=== PATIENT | female | born 1945 | race Caucasian/White ===

== ENCOUNTER 2017-01-19 07:17 | Emergency (ER) | payer MEDICARE, BC ==
--- NOTE | 2017-01-19 09:07 | EDM.PDOC ---
ED HISTORY OF PRESENT ILLNESS - General Chief Complaint: Respiratory Problem Stated Complaint: SOB Time Seen by Provider: 01/19/17 07:45 Source of Information: Reports: Patient, Family (Daughter, ), RN notes reviewed History Limitations: Reports: No limitations - History of Present Illness INITIAL COMMENTS - FREE TEXT/NARRATIVE: The patient's family states that they brought her to the EEG gets her wishes. She is reporting a head and facial pain that extends down her anterior neck to her upper chest, whenever she exerts herself, on off since 01/15/2017. She apparently has been experiencing this for many years, perhaps since 2008. She is unable to describe the character of her pain. She also reports cough productive of phlegm (color unknown) for the past 10 days. No recent fever, nausea, vomiting, constipation, diarrhea, or urinary symptoms. 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 Her most recent Venofer infusion was this past 01/15/2017. - Related Data Allergies/ADRs: Allergies Allergy/AdvReac Type Severity Reaction Status Date / Time lisinopril Allergy Swelling Verified 01/19/17 07:26 red dye Allergy Rash Verified 01/19/17 07:26 Home Meds: Home Meds Aspirin [[place] Aspirin] 81 mg PO DAILY 08/19/14 [History] DULoxetine [Cymbalta] 30 mg PO DAILY 08/19/14 [History] Isosorbide Mononitrate [Imdur] 60 mg PO DAILY 08/19/14 [History] Levothyroxine Sodium [Synthroid] 150 mcg PO DAILY 08/19/14 [History] Losartan [Cozaar] 25 mg PO BID 08/19/14 [History] Metoprolol Succinate [Toprol XL] 50 mg PO DAILY 08/19/14 [History] Nitroglycerin 0.4 mg SL ASDIRECTED PRN 08/19/14 [History] Past Medical History Cardiovascular History: Reports: CAD, Hypertension Gastrointestinal History: Reports: GERD, Hiatal hernia 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: Musculoskeletal History: Reports: Fracture Neurological History: Reports: CVA (Number agitated, during CABG surgery) Psychiatric History: Reports: Depression Endocrine/Metabolic History: Reports: Hypothyroidism Hematologic History: Reports: Anemia, Blood transfusion(s), Iron deficiency Oncologic (Cancer) History: Reports: Uterine - Infectious Disease History Infectious Disease History: Reports: Chicken pox, Measles, Mumps - Past Surgical History HEENT Surgical History: Reports: Cataract surgery, Tonsillectomy Cardiovascular Surgical History: Reports: Coronary artery bypass (x 5 vessel, 2011) GI Surgical History: Reports: Colonoscopy Female Surgical History: Reports: Hysterectomy, Salpingo-oophorectomy, Tubal ligation Musculoskeletal Surgical History: Reports: Knee replacement (left) Social & Family History - Tobacco Use Smoking Status *Q: Never Smoker Second Hand Smoke Exposure: No - Caffeine Use Caffeine Use: Reports: Soda Other Caffeine Use: occasionally - Alcohol Use Alcohol Use History: Yes Days Per Week of Alcohol Use: 0 Alcohol Use Frequency: Socially - Recreational Drug Use Recreational Drug Use: No - Living Situation & Occupation Living situation: Reports: , with spouse Occupation: retired ED ROS GENERAL - Review of Systems Review Of Systems: See Below Constitutional: Reports: no symptoms HEENT: Reports: Other (Head and facial pain, as per the HPI) Respiratory: Reports: Cough, Sputum Cardiovascular: Reports: Chest pain (as per the HPI) Endocrine: Reports: no symptoms GI/Abdominal: Reports: No symptoms : Reports: no symptoms Musculoskeletal: Reports: no symptoms Skin: Reports: no symptoms Neurological: Reports: No Symptoms Psychiatric: Reports: No symptoms Hematologic/Lymphatic: Reports: no symptoms Immunologic: Reports: no symptoms ED EXAM, GENERAL - Physical Exam Exam: See Below Exam Limited By: No limitations General Appearance: alert, WD/WN, mild distress (Kept her eyes closed the entire visit) Ears: normal external exam, hearing grossly normal Ear Exam: bilateral ear: auricle normal Nose: normal inspection, no blood Throat/Mouth: Normal inspection, Normal lips, Normal voice, No airway compromise Head: atraumatic, normocephalic Neck: normal inspection, full range of motion Respiratory/Chest: no respiratory distress, lungs clear, normal breath sounds, no accessory muscle use, other (Reproducible tenderness to palpation of the upper chest) Cardiovascular: normal peripheral pulses, regular rate, rhythm, no edema, no gallop, no JVD, no murmur, no rub Peripheral Pulses: 4+: radial (L), radial (R) GI/Abdominal: normal bowel sounds, soft, non tender, no organomegaly, no distention, no abnormal bruit, no mass (Female) Exam: Deferred Rectal (Female) Exam: Deferred Back Exam: normal inspection, full range of motion, NT Extremities: normal inspection, normal range of motion, no pedal edema, normal capillary refill Neurological: alert, oriented, normal cognition, no motor/sensory deficits Psychiatric: flat affect Skin Exam: Warm, Dry, Intact, Normal color, No rash Lymphatic: no adenopathy EKG INTERPRETATION EKG Date: 01/19/17 Time: 07:35 Rhythm: NSR Rate (beats/min): 82 [place]: normal P-wave: present QRS: normal ST-T: normal QT: normal Comparison: no change (10/27/2014) Course - Vital Signs Last Recorded V/S: Last Vital Signs Temp 36.4 C 01/19/17 07:20 Pulse 86 01/19/17 07:20 Resp 15 01/19/17 07:20 BP 156/56 H 01/19/17 07:20 Pulse Ox 97 01/19/17 07:20 Orthostatic Blood Pressure [ 178/90 Standing] Orthostatic Blood Pressure [ 162/83 Supine] - Orders/Labs/Meds Orders: Active Orders 24 hr Category Date Time Status EKG 12 Lead [EKG Documentation Completion] [RC] STAT Care 01/19/17 07:35 Active Orthostatic Vital Signs [RC] STAT Care 01/19/17 08:11 Active Chest 2V [CR] Stat Exams 01/19/17 08:11 Taken UA W/MICROSCOPIC [URIN] Stat Lab 01/19/17 09:48 Ordered Labs: Laboratory Tests 01/19/17 01/19/17 01/19/17 Range/Units 07:50 07:50 07:50 WBC 7.13 (3.98-10.04) K/mm3 RBC 4.34 (3.98-5.22) M/mm3 Hgb 9.5 L (11.2-15.7) gm/L Hct 32.1 L (34.1-44.9) % MCV 74.0 L (79.4-94.8) fl MCH 21.9 L (25.6-32.2) pg MCHC 29.6 L (32.2-35.5) g/dl RDW Std Deviation 47.0 H (36.4-46.3) fL Plt Count 338 (182-369) K/mm3 MPV 10.7 (9.4-12.3) fl Neutrophils % (Manual) 75 H (40-60) % Band Neutrophils % 0 (0-10) % Lymphocytes % (Manual) 12 L (20-40) % Atypical Lymphs % 4 % Monocytes % (Manual) 4 (2-10) % Eosinophils % (Manual) 4 (0.7-5.8) % Basophils % (Manual) 1 (0.1-1.2) Platelet Estimate Adequate Plt Morphology Comment Normal Polychromasia 1+ slight Hypochromasia 1+ slight Poikilocytosis 2+ moderate Anisocytosis 1+ slight Microcytosis 1+ slight Macrocytosis 1+ slight Tear Drop Cells 1+ slight Ovalocytes 1+ slight Stomatocytes 1+ slight RBC Morph Comment Abnormal Percent Retic (0.50-1.70) % PT (8.0-13.0) SECONDS INR APTT (22-36) SECONDS D-Dimer, Quantitative 0.68 H (0.19-0.59) mg/L Sodium 143 (136-145) mEq/L Potassium 3.9 (3.5-5.1) mEq/L Chloride 108 H (98-107) mEq/L Carbon Dioxide 27 (21-32) mEq/L Anion Gap 11.9 (5-15) BUN 16 (7-18) mg/dL Creatinine 0.7 (0.55-1.02) mg/dL Est Cr Clr Drug Dosing 59.15 mL/min Estimated GFR (MDRD) > 60 (>60) mL/min BUN/Creatinine Ratio 22.9 H (14-18) Glucose 108 (80-115) mg/dL Calcium 8.7 (8.5-10.1) mg/dL Iron (50-170) ug/dL TIBC (100-400) ug/dL % Saturation (20-55) % Transferrin (202-364) mg/dL Ferritin (8-252) ng/ml Total Bilirubin 0.2 (0.2-1.0) mg/dL AST 24 (15-37) U/L ALT 24 (14-59) U/L Alkaline Phosphatase 53 (46-116) U/L Lactate Dehydrogenase 174 (81-234) U/L Troponin I < 0.017 (0.00-0.056) ng/mL C-Reactive Protein 0.8 (<1.0) mg/dL Total Protein 6.8 (6.4-8.2) g/dl Albumin 3.3 L (3.4-5.0) g/dl Globulin 3.5 gm/dL Albumin/Globulin Ratio 0.9 L (1-2) TSH 3rd Generation 1.578 (0.358-3.74) uIU/mL Urine Color (Yellow) Urine Appearance (Clear) Urine pH (5.0-8.0) Ur Specific [place] (1.005-1.030) Urine Protein (Negative) Urine Glucose (UA) (Negative) Urine Ketones (Negative) Urine Occult Blood (Negative) Urine Nitrite (Negative) Urine Bilirubin (Negative) Urine Urobilinogen (0.2-1.0) Ur Leukocyte Esterase (Negative) Urine RBC (0-5) /hpf Urine WBC (0-5) /hpf Ur Epithelial Cells (0-5) /hpf Ur Squamous Epith Cells (0-5) /hpf Urine Bacteria (FEW) /hpf Urine Mucus (FEW) /hpf 01/19/17 01/19/17 01/19/17 Range/Units 07:50 07:50 07:50 WBC (3.98-10.04) K/mm3 RBC (3.98-5.22) M/mm3 Hgb (11.2-15.7) gm/L Hct (34.1-44.9) % MCV (79.4-94.8) fl MCH (25.6-32.2) pg MCHC (32.2-35.5) g/dl RDW Std Deviation (36.4-46.3) fL Plt Count (182-369) K/mm3 MPV (9.4-12.3) fl Neutrophils % (Manual) (40-60) % Band Neutrophils % (0-10) % Lymphocytes % (Manual) (20-40) % Atypical Lymphs % % Monocytes % (Manual) (2-10) % Eosinophils % (Manual) (0.7-5.8) % Basophils % (Manual) (0.1-1.2) Platelet Estimate Plt Morphology Comment Polychromasia Hypochromasia Poikilocytosis Anisocytosis Microcytosis Macrocytosis Tear Drop Cells Ovalocytes Stomatocytes RBC Morph Comment Percent Retic 2.37 H (0.50-1.70) % PT 9.6 (8.0-13.0) SECONDS INR 0.89 APTT 26 (22-36) SECONDS D-Dimer, Quantitative (0.19-0.59) mg/L Sodium (136-145) mEq/L Potassium (3.5-5.1) mEq/L Chloride (98-107) mEq/L Carbon Dioxide (21-32) mEq/L Anion Gap (5-15) BUN (7-18) mg/dL Creatinine (0.55-1.02) mg/dL Est Cr Clr Drug Dosing mL/min Estimated GFR (MDRD) (>60) mL/min BUN/Creatinine Ratio (14-18) Glucose (80-115) mg/dL Calcium (8.5-10.1) mg/dL Iron 40 L (50-170) ug/dL TIBC 430 H (100-400) ug/dL % Saturation 9 L (20-55) % Transferrin 344 (202-364) mg/dL Ferritin 211 (8-252) ng/ml Total Bilirubin (0.2-1.0) mg/dL AST (15-37) U/L ALT (14-59) U/L Alkaline Phosphatase (46-116) U/L Lactate Dehydrogenase (81-234) U/L Troponin I (0.00-0.056) ng/mL C-Reactive Protein (<1.0) mg/dL Total Protein (6.4-8.2) g/dl Albumin (3.4-5.0) g/dl Globulin gm/dL Albumin/Globulin Ratio (1-2) TSH 3rd Generation (0.358-3.74) uIU/mL Urine Color (Yellow) Urine Appearance (Clear) Urine pH (5.0-8.0) Ur Specific [place] (1.005-1.030) Urine Protein (Negative) Urine Glucose (UA) (Negative) Urine Ketones (Negative) Urine Occult Blood (Negative) Urine Nitrite (Negative) Urine Bilirubin (Negative) Urine Urobilinogen (0.2-1.0) Ur Leukocyte Esterase (Negative) Urine RBC (0-5) /hpf Urine WBC (0-5) /hpf Ur Epithelial Cells (0-5) /hpf Ur Squamous Epith Cells (0-5) /hpf Urine Bacteria (FEW) /hpf Urine Mucus (FEW) /hpf 01/19/17 Range/Units 09:48 WBC (3.98-10.04) K/mm3 RBC (3.98-5.22) M/mm3 Hgb (11.2-15.7) gm/L Hct (34.1-44.9) % MCV (79.4-94.8) fl MCH (25.6-32.2) pg MCHC (32.2-35.5) g/dl RDW Std Deviation (36.4-46.3) fL Plt Count (182-369) K/mm3 MPV (9.4-12.3) fl Neutrophils % (Manual) (40-60) % Band Neutrophils % (0-10) % Lymphocytes % (Manual) (20-40) % Atypical Lymphs % % Monocytes % (Manual) (2-10) % Eosinophils % (Manual) (0.7-5.8) % Basophils % (Manual) (0.1-1.2) Platelet Estimate Plt Morphology Comment Polychromasia Hypochromasia Poikilocytosis Anisocytosis Microcytosis Macrocytosis Tear Drop Cells Ovalocytes Stomatocytes RBC Morph Comment Percent Retic (0.50-1.70) % PT (8.0-13.0) SECONDS INR APTT (22-36) SECONDS D-Dimer, Quantitative (0.19-0.59) mg/L Sodium (136-145) mEq/L Potassium (3.5-5.1) mEq/L Chloride (98-107) mEq/L Carbon Dioxide (21-32) mEq/L Anion Gap (5-15) BUN (7-18) mg/dL Creatinine (0.55-1.02) mg/dL Est Cr Clr Drug Dosing mL/min Estimated GFR (MDRD) (>60) mL/min BUN/Creatinine Ratio (14-18) Glucose (80-115) mg/dL Calcium (8.5-10.1) mg/dL Iron (50-170) ug/dL TIBC (100-400) ug/dL % Saturation (20-55) % Transferrin (202-364) mg/dL Ferritin (8-252) ng/ml Total Bilirubin (0.2-1.0) mg/dL AST (15-37) U/L ALT (14-59) U/L Alkaline Phosphatase (46-116) U/L Lactate Dehydrogenase (81-234) U/L Troponin I (0.00-0.056) ng/mL C-Reactive Protein (<1.0) mg/dL Total Protein (6.4-8.2) g/dl Albumin (3.4-5.0) g/dl Globulin gm/dL Albumin/Globulin Ratio (1-2) TSH 3rd Generation (0.358-3.74) uIU/mL Urine Color Other H (Yellow) Urine Appearance Clear (Clear) Urine pH 7.0 (5.0-8.0) Ur Specific [place] 1.020 (1.005-1.030) Urine Protein Negative (Negative) Urine Glucose (UA) Negative (Negative) Urine Ketones Negative (Negative) Urine Occult Blood Negative (Negative) Urine Nitrite Negative (Negative) Urine Bilirubin Negative (Negative) Urine Urobilinogen 0.2 (0.2-1.0) Ur Leukocyte Esterase Negative (Negative) Urine RBC Not seen (0-5) /hpf Urine WBC Not seen (0-5) /hpf Ur Epithelial Cells Not seen (0-5) /hpf Ur Squamous Epith Cells 0-5 (0-5) /hpf Urine Bacteria Not seen (FEW) /hpf Urine Mucus Not seen (FEW) /hpf - Radiology Interpretation Free Text/Narrative:: Two-view chest radiograph appears to be grossly normal. Cardiac silhouette is within normal limits. No pulmonary vascular congestion. No pleural effusions. No focal infiltrate. No pneumothorax. Likely hiatal hernia. Sternotomy wires and cardiac clips noted. Formal read per the Radiologist pending. - Re-Assessments/Exams Free Text/Narrative Re-Assessment/Exam: 01/19/17 11:11 The patient is not orthostatic. The urine sample is in the lab, but there is apparently a computer glitch, therefore we are still waiting on the urine results. 01/19/17 11:49 Test results discussed with the patient, her , and daughter. All questions answered. Today's workup is grossly unremarkable and does not explain the cause of the patient's symptoms. I suspect that the patient is suffering from a viral URI with cough. Departure - Departure Time of Disposition: 11:50 Disposition: Home, Self-Care 01 Condition: good Clinical Impression: Viral URI with cough Referrals: Christy Oconnor [employer] [Primary Care Provider] - Forms: ED Department Discharge Additional Instructions: You were seen in the emergency room for head and face pain extending down onto her chest, along with a cough. Workup in the ER included blood work, and a urinalysis, an ECG, a chest x-ray, and positional blood pressure checks. Your entire workup was unremarkable. Your hemoglobin/hematocrit are 9.5/32.1. Your symptoms are MOST LIKELY due to a viral URI with cough. Unfortunately, there is no treatment for a viral illness - it will have to run its course. We DO NOT recommend that you take any [id number] cough or cold remedies. They do not work, but do have side effects. Followup with your PCP, Anais Oconnor, as needed. If any other problems, please do not hesitate to return to the ER. - My Orders Last 24 Hours: My Active Orders 01/19/17 07:35 EKG 12 Lead [EKG Documentation Completion] [RC] STAT 01/19/17 08:11 Orthostatic Vital Signs [RC] STAT Chest 2V [CR] Stat 01/19/17 09:48 UA W/MICROSCOPIC [URIN] Stat - Assessment/Plan Last 24 Hours: My Active Orders 01/19/17 07:35 EKG 12 Lead [EKG Documentation Completion] [RC] STAT 01/19/17 08:11 Orthostatic Vital Signs [RC] STAT Chest 2V [CR] Stat 01/19/17 09:48 UA W/MICROSCOPIC [URIN] Stat
[2017-01-19 12:18] VITALS: BP 146/71
--- NOTE | 2017-01-19 18:16 | CR ---
Chest: Two views of the chest were obtained. Comparison: Previous chest x-ray of 10/27/14. Heart size appears within normal limits. Large hiatal hernia is seen increased in size from prior exam. Lungs are clear with no acute infiltrates. Previous sternotomy is noted for CABG. Degenerative spurring is noted within the spine. Impression: 1. Large hiatal hernia increased in size from prior exam. 2. Other incidental findings. Nothing acute is appreciated. Diagnostic code #2
== END 2017-01-19 12:10 | disposition home or self-care (01) ==
LOC: JD.ED 07:17
DX: J06.9 Acute upper respiratory infection, unspecified (principal); R05 Cough; I25.810 Atherosclerosis of coronary artery bypass graft(s) without angina pectoris; I10 Essential (primary) hypertension; K21.9 Gastro-esophageal reflux disease without esophagitis; K44.9 Diaphragmatic hernia without obstruction or gangrene; Z86.73 Personal history of transient ischemic attack (TIA), and cerebral infarction without residual deficits; F32.9 Major depressive disorder, single episode, unspecified; E03.9 Hypothyroidism, unspecified; D50.9 Iron deficiency anemia, unspecified
CPT/HCPCS: 36415; 71020; 71020-26; 80053; 81001; 82728; 83540; 83615; 84443; 84466; 84484; 85025; 85045; 85379; 85610; 85730; 86140; 93005; 99283; 99285-25

== ENCOUNTER 2017-09-08 23:49 | Observation (INO) | payer MEDICARE, BC ==
[2017-09-09] MEDS ORDERED: Sodium Chloride 0.9% 10 ML Syringe FLUSH PRN (00:06)
[2017-09-09] MEDS ORDERED: LORazepam 2 MG/ML MDV IVPUSH ONE (00:30)
[2017-09-09] MEDS ORDERED: HYDROmorphone 0.5 MG/0.5 ML Syringe IVPUSH ONE (00:30)
[2017-09-09] MEDS ORDERED: Nitroglycerin 2% Oint 1 GM UD Packet TOP ONE (00:31)
[2017-09-09] MEDS ORDERED: Metoprolol Tartrate 5 MG in Sodium Chloride 0.9% 50 ML IV ONE (00:50)
[2017-09-09] MEDS ORDERED: Metoprolol Tartrate 5 MG/5 ML SDV IVPUSH ONE (00:51)
--- NOTE | 2017-09-09 01:15 | EDM.PDOC ---
ED HPI GENERAL MEDICAL PROBLEM - General Chief Complaint: Chest Pain Stated Complaint: CHEST PAIN Time Seen by Provider: 09/09/17 00:06 Source of Information: Reports: Patient, Family, RN Notes Reviewed () - History of Present Illness INITIAL COMMENTS - FREE TEXT/NARRATIVE: 72-year-old female comes in with symptoms of chest discomfort. She had onset of burning and pressure type tightness of her mid chest radiating toward her right shoulder and base of neck this evening about 2 hours ago. Upon arrival to ED she states the pain was much better and then just prior to my exam did start coming back again. She does have history of coronary artery disease with prior bypass surgery about 5 years ago. She does have history of hypothyroidism, hypertension and chronic anemia. She states that she has been getting somewhat frequent chest pains off and on for about the past month. The discomfort this evening was more severe and longer lasting than what she is typically been experiencing. There's been no nausea vomiting or diaphoresis. She states she has had low energy recently and "has not been doing much". Chest Pain Score (Numeric/FACES): 5 - Related Data Allergies Allergy/AdvReac Type Severity Reaction Status Date / Time lisinopril Allergy Swelling Verified 09/09/17 00:02 red dye Allergy Rash Verified 09/09/17 00:02 Home Meds: Home Meds Levothyroxine Sodium [Synthroid] 150 mcg PO DAILY 08/19/14 [History] Losartan [Cozaar] 25 mg PO BID 08/19/14 [History] Metoprolol Succinate [Toprol XL] 50 mg PO DAILY 08/19/14 [History] Nitroglycerin 0.4 mg SL ASDIRECTED PRN 08/19/14 [History] Past Medical History HEENT History: Reports: Cataract Cardiovascular History: Reports: CAD, Hypertension Other Cardiovascular History: states bypass grafts collapsed "because iron level was so low, it wouldn't pump the blood." Was then stented. 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 Psychiatric History: Reports: Depression Endocrine/Metabolic History: Reports: Hypothyroidism Other Endocrine/Metabolic History: hypoglycemic. Hematologic History: Reports: Anemia, Blood Transfusion(s), Iron Deficiency Other Hematologic History: iron transfusions. Oncologic (Cancer) History: Reports: Uterine - Infectious Disease History Infectious Disease History: Reports: Chicken Pox, Measles, Mumps - Past Surgical History HEENT Surgical History: Reports: Cataract Surgery, Tonsillectomy Cardiovascular Surgical History: Reports: Coronary Artery Bypass Female Surgical History: Reports: Hysterectomy, Salpingo-Oophorectomy, Tubal Ligation Musculoskeletal Surgical History: Reports: Knee Replacement Social & Family History - Tobacco Use Smoking Status *Q: Never Smoker Second Hand Smoke Exposure: No - Caffeine Use Caffeine Use: Reports: Coffee Other Caffeine Use: occasionally - Alcohol Use Days Per Week of Alcohol Use: 0 - Recreational Drug Use Recreational Drug Use: No - Living Situation & Occupation Living situation: Reports: , with Spouse Occupation: Retired ED ROS GENERAL - Review of Systems Review Of Systems: See Below Constitutional: Denies: Fever, Chills, Diaphoresis HEENT: Denies: Throat Pain Respiratory: Reports: Shortness of Breath (Exertional) Cardiovascular: Reports: Chest Pain (Onset about 2 hours ago anterior and right chest), Lightheadedness (Mild) GI/Abdominal: Reports: Abdominal Pain (She did have some upper mid epigastric burning discomfort now better). Denies: Diarrhea, Hematochezia, Melena, Vomiting Musculoskeletal: Reports: Neck Pain (Right shoulder asymmetric), Shoulder Pain Skin: Reports: No Symptoms Neurological: Reports: Dizziness (Mild) ED EXAM, GENERAL - Physical Exam Exam: See Below General Appearance: Alert, Mild Distress Eye Exam: Bilateral Eye: PERRL Throat/Mouth: Normal Inspection, Normal Oropharynx Head: Atraumatic Neck: Supple, Full Range of Motion, Other Respiratory/Chest: No Respiratory Distress (No JVD), Lungs Clear, Normal Breath Sounds. No: Rales, Rhonchi, Wheezing Cardiovascular: Tachycardia GI/Abdominal: Soft, Non-Tender. No: Guarding Rectal (Female) Exam: Normal Exam, Normal Rectal Tone, Other (Small amount of brown stool, heme-negative) Back Exam: Normal Inspection. No: CVA Tenderness (L), CVA Tenderness (R) Extremities: Pedal Edema, Increased Warmth. No: Leg Pain (Mild bilateral), Redness Neurological: Alert, No Motor/Sensory Deficits Skin Exam: Warm, Dry, Pallor EKG INTERPRETATION EKG Date: 09/08/17 Rhythm: NSR [place]: Normal P-Wave: Present QRS: Normal ST-T: Normal Course - Vital Signs Last Recorded V/S: Last Vital Signs Temp 97.4 F 09/08/17 23:58 Pulse 102 H 09/08/17 23:58 Resp 20 09/08/17 23:58 BP 153/63 H 09/08/17 23:58 Pulse Ox 98 09/08/17 23:58 - Orders/Labs/Meds Orders: Active Orders 24 hr Category Date Time Status EKG 12 Lead [EKG Documentation Completion] [RC] STAT Care 09/09/17 00:07 Active Peripheral IV Care [RC] . DIRECTED Care 09/09/17 00:07 Active Chest 1V Frontal [CR] Stat Exams 09/09/17 00:07 Taken PACKED CELLS [RED BLOOD CELLS LP] [BBK] Stat Lab 09/09/17 00:39 Results TYPE AND SCREEN [BBK] Stat Lab 09/09/17 00:39 Results Sodium Chloride 0.9% [Normal Saline] 250 ml Med 09/09/17 01:45 Active IV ASDIRECTED Sodium Chloride 0.9% [Saline Flush] Med 09/09/17 00:06 Active 10 ml FLUSH ASDIRECTED PRN Peripheral IV Insertion Adult [OM.PC] Stat Oth 09/09/17 00:07 Ordered Medication Orders Sodium Chloride (Normal Saline) 250 mls @ 10 mls/hr IV ASDIRECTED JOELLEN Sodium Chloride (Saline Flush) 10 ml FLUSH ASDIRECTED PRN PRN Reason: Keep Vein Open Last Admin: 09/09/17 00:21 Dose: 10 ml Labs: Laboratory Tests 09/09/17 09/09/17 09/09/17 Range/Units 00:39 00:39 00:39 WBC 5.64 (3.98-10.04) K/mm3 RBC 2.86 L (3.98-5.22) M/mm3 Hgb 6.0 L* (11.2-15.7) gm/L Hct 21.5 L (34.1-44.9) % MCV 75.2 L (79.4-94.8) fl MCH 21.0 L (25.6-32.2) pg MCHC 27.9 L (32.2-35.5) g/dl RDW Std Deviation 43.1 (36.4-46.3) fL Plt Count 262 (182-369) K/mm3 MPV 10.7 (9.4-12.3) fl Neut % (Auto) 67.7 (34.0-71.1) % Lymph % (Auto) 20.7 (19.3-51.7) % [place] % (Auto) 8.9 (4.7-12.5) % Eos % (Auto) 2.1 (0.7-5.8) Baso % (Auto) 0.2 (0.1-1.2) % Neut # (Auto) 3.82 (1.56-6.13) K/mm3 Lymph # (Auto) 1.17 L (1.18-3.74) K/mm3 [place] # (Auto) 0.50 H (0.24-0.36) K/mm3 Eos # (Auto) 0.12 (0.04-0.36) K/mm3 Baso # (Auto) 0.01 (0.01-0.08) K/mm3 Manual Slide Review Abnormal smear Sodium 142 (136-145) mEq/L Potassium 3.8 (3.5-5.1) mEq/L Chloride 106 (98-107) mEq/L Carbon Dioxide 25 (21-32) mEq/L Anion Gap 14.8 (5-15) BUN 20 H (7-18) mg/dL Creatinine 1.0 (0.55-1.02) mg/dL Est Cr Clr Drug Dosing 44.56 mL/min Estimated GFR (MDRD) 55 (>60) mL/min BUN/Creatinine Ratio 20.0 H (14-18) Glucose 154 H (83-115) mg/dL Calcium 8.7 (8.5-10.1) mg/dL Total Bilirubin 0.2 (0.2-1.0) mg/dL AST 17 (15-37) U/L ALT 19 (14-59) U/L Alkaline Phosphatase 42 L (46-116) U/L Troponin I < 0.017 (0.00-0.056) ng/mL NT-Pro-B Natriuret Pep 364 H (0-125) pg/mL Total Protein 6.1 L (6.4-8.2) g/dl Albumin 3.0 L (3.4-5.0) g/dl Globulin 3.1 gm/dL Albumin/Globulin Ratio 1.0 (1-2) Blood Type Gel Antibody Screen Crossmatch 09/09/17 Range/Units 00:39 WBC (3.98-10.04) K/mm3 RBC (3.98-5.22) M/mm3 Hgb (11.2-15.7) gm/L Hct (34.1-44.9) % MCV (79.4-94.8) fl MCH (25.6-32.2) pg MCHC (32.2-35.5) g/dl RDW Std Deviation (36.4-46.3) fL Plt Count (182-369) K/mm3 MPV (9.4-12.3) fl Neut % (Auto) (34.0-71.1) % Lymph % (Auto) (19.3-51.7) % [place] % (Auto) (4.7-12.5) % Eos % (Auto) (0.7-5.8) Baso % (Auto) (0.1-1.2) % Neut # (Auto) (1.56-6.13) K/mm3 Lymph # (Auto) (1.18-3.74) K/mm3 [place] # (Auto) (0.24-0.36) K/mm3 Eos # (Auto) (0.04-0.36) K/mm3 Baso # (Auto) (0.01-0.08) K/mm3 Manual Slide Review Sodium (136-145) mEq/L Potassium (3.5-5.1) mEq/L Chloride (98-107) mEq/L Carbon Dioxide (21-32) mEq/L Anion Gap (5-15) BUN (7-18) mg/dL Creatinine (0.55-1.02) mg/dL Est Cr Clr Drug Dosing mL/min Estimated GFR (MDRD) (>60) mL/min BUN/Creatinine Ratio (14-18) Glucose (83-115) mg/dL Calcium (8.5-10.1) mg/dL Total Bilirubin (0.2-1.0) mg/dL AST (15-37) U/L ALT (14-59) U/L Alkaline Phosphatase (46-116) U/L Troponin I (0.00-0.056) ng/mL NT-Pro-B Natriuret Pep (0-125) pg/mL Total Protein (6.4-8.2) g/dl Albumin (3.4-5.0) g/dl Globulin gm/dL Albumin/Globulin Ratio (1-2) Blood Type O POSITIVE Gel Antibody Screen Negative Crossmatch See Detail Meds: Medications Generic Name Dose Route Start Last Admin Trade Name Freq PRN Reason Stop Dose Admin Sodium Chloride 250 mls @ 10 mls/hr 09/09/17 01:45 Normal Saline IV ASDIRECTED JOELLEN Sodium Chloride 10 ml 09/09/17 00:06 09/09/17 00:21 Saline Flush FLUSH 10 ml ASDIRECTED PRN Administration Keep Vein Open Discontinued Medications Generic Name Dose Route Start Last Admin Trade Name Freq PRN Reason Stop Dose Admin Hydromorphone HCl 0.5 mg 09/09/17 00:30 09/09/17 00:37 Dilaudid IVPUSH 09/09/17 00:31 0.5 mg ONETIME ONE Administration Metoprolol Tartrate 5 mg/ 55 mls @ 100 mls/hr 09/09/17 00:50 Sodium Chloride IV 09/09/17 01:22 ONETIME ONE Lorazepam 0.25 mg 09/09/17 00:30 09/09/17 00:37 Ativan IVPUSH 09/09/17 00:31 0.25 mg ONETIME ONE Administration Metoprolol Tartrate 5 mg 09/09/17 00:51 Lopressor IVPUSH 09/09/17 00:52 ONETIME ONE Nitroglycerin 1 gm 09/09/17 00:31 09/09/17 00:38 Nitro-Bid 2% TOP 09/09/17 00:32 1 gm ONETIME ONE Administration - Re-Assessments/Exams Free Text/Narrative Re-Assessment/Exam: 09/09/17 01:20. Hemoglobin has come back at 6.0. She does have history of chronic anemia. She had Been getting iron infusion shots regularly but apparently that was stopped last spring about 8 or 9 months ago. She states her hemoglobin had been 10 at the clinic not too long ago. there has been no recent melena or hematochezia. She states she has had frequent colonoscopy and endoscopy looking for etiology of apparent blood loss and no bleeding site "has ever been found". She states her last colonoscopy was less than a year ago. Other chemistries are normal. Troponin is come back normal. 09/09/17 01:34. Chest x-ray shows fairly large hiatal hernia which she has had on previous study there is some blurring of the left heart shadow also present on prior chest x-ray. I have ordered 2 units of blood for transfusion. Will plan to make admission arrangements at this time. Departure - Departure Time of Disposition: 01:35 Disposition: Admitted As Inpatient 67 Condition: Fair Clinical Impression: Atypical chest pain Anemia Qualifiers: Anemia type: iron deficiency Iron deficiency anemia type: unspecified iron deficiency Qualified Code(s): D50.9 - Iron deficiency anemia, unspecified ED Communication - Discussed Case With (1) Discussed Case With (1): Admitting Provider (Dr Carver, decision to admit at about 01:45.) - My Orders Last 24 Hours: My Active Orders 09/09/17 00:06 Sodium Chloride 0.9% [Saline Flush] 10 ml FLUSH ASDIRECTED PRN 09/09/17 00:07 EKG 12 Lead [EKG Documentation Completion] [RC] STAT Peripheral IV Care [RC] . DIRECTED Chest 1V Frontal [CR] Stat Peripheral IV Insertion Adult [OM.PC] Stat 09/09/17 00:39 PACKED CELLS [RED BLOOD CELLS LP] [BBK] Stat TYPE AND SCREEN [BBK] Stat 09/09/17 01:45 Sodium Chloride 0.9% [Normal Saline] 250 ml IV ASDIRECTED - Assessment/Plan Last 24 Hours: My Active Orders 09/09/17 00:06 Sodium Chloride 0.9% [Saline Flush] 10 ml FLUSH ASDIRECTED PRN 09/09/17 00:07 EKG 12 Lead [EKG Documentation Completion] [RC] STAT Peripheral IV Care [RC] . DIRECTED Chest 1V Frontal [CR] Stat Peripheral IV Insertion Adult [OM.PC] Stat 09/09/17 00:39 PACKED CELLS [RED BLOOD CELLS LP] [BBK] Stat TYPE AND SCREEN [BBK] Stat 09/09/17 01:45 Sodium Chloride 0.9% [Normal Saline] 250 ml IV ASDIRECTED
[2017-09-09] MEDS: Sodium Chloride 0.9% 250 ML IV SCH ×3 (01:50→17:03)
[2017-09-09] MEDS ORDERED: Sodium Chloride 0.9% 1,000 ML IV SCH (04:30)
--- NOTE | 2017-09-09 07:24 | CR ---
Chest: Portable view of the chest was obtained. Comparison: Prior chest x-ray of 01/19/17. Heart size is slightly enlarged. Large hiatal hernia is noted. Previous sternotomy is noted with CABG. Lung markings are mildly increased which appear stable. No acute infiltrates are seen. Bony structures are grossly intact. Impression: 1. Large hiatal hernia. Other stable findings. 2. Nothing acute is appreciated on portable chest x-ray. Diagnostic code #2
[2017-09-09] MEDS ORDERED: Nitroglycerin 0.4 MG Tab.SL SL PRN (08:18)
--- NOTE | 2017-09-09 08:27 | PCM.HP ---
H&P History of Present Illness - General Date of Service: 09/09/17 Admit Problem/Dx: Admission Diagnosis/Problem Admission Diagnosis/Problem Anemia Source of Information: Patient - History of Present Illness Initial Comments - Free Text/Narative: 72-year-old female comes in with symptoms of chest discomfort. She had onset of burning and pressure type tightness of her mid chest radiating toward her right shoulder and base of neck this evening about 2 hours ago. Upon arrival to ED she states the pain was much better and then just prior to my exam did start coming back again. She does have history of coronary artery disease with prior bypass surgery about 5 years ago. She does have history of hypothyroidism, hypertension and chronic anemia. She states that she has been getting somewhat frequent chest pains off and on for about the past month. The discomfort this evening was more severe and longer lasting than what she is typically been experiencing. There's been no nausea vomiting or diaphoresis. She states she has had low energy recently and "has not been doing much". in ER her Hb was 6.0, had a hx of iron def anemia and she used to get IV iron infusion for years but last time she did that was 4 months ago. No sign of GIB , her guaic was negative in ER. Pt had multiple EGD/C-SCOPY/CAPSULE with no significant findings as a reason for her anemia. Chest Pain Score (Numeric/FACES): 5 - Related Data Allergies/Adverse Reactions: Allergies Allergy/AdvReac Type Severity Reaction Status Date / Time lisinopril Allergy Swelling Verified 09/09/17 00:02 red dye Allergy Rash Verified 09/09/17 00:02 Home Medications: Home Meds Levothyroxine Sodium [Synthroid] 150 mcg PO DAILY 08/19/14 [History] Losartan [Cozaar] 25 mg PO BID 08/19/14 [History] Metoprolol Succinate [Toprol XL] 50 mg PO DAILY 08/19/14 [History] Nitroglycerin 0.4 mg SL ASDIRECTED PRN 08/19/14 [History] Past Medical History HEENT History: Reports: Cataract Cardiovascular History: Reports: CAD, Hypertension Other Cardiovascular History: states bypass grafts collapsed "because iron level was so low, it wouldn't pump the blood." Was then stented. 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 Hematologic History: Reports: Anemia, Blood Transfusion(s), Iron Deficiency Other Hematologic History: iron transfusions. Oncologic (Cancer) History: Reports: Uterine - Infectious Disease History Infectious Disease History: Reports: Chicken Pox, Measles, Mumps - Past Surgical History HEENT Surgical History: Reports: Cataract Surgery, Tonsillectomy Cardiovascular Surgical History: Reports: Coronary Artery Bypass Respiratory Surgical History: Reports: None GI Surgical History: Reports: Colonoscopy, EGD Female Surgical History: Reports: Hysterectomy, Salpingo-Oophorectomy, Tubal Ligation Endocrine Surgical History: Reports: None Neurological Surgical History: Reports: None Musculoskeletal Surgical History: Reports: Knee Replacement Other Musculoskeletal Surgeries/Procedures:: left knee replacement Dermatological Surgical History: Reports: None Social & Family History - Family History Family Medical History: Noncontributory - Tobacco Use Smoking Status *Q: Never Smoker Second Hand Smoke Exposure: No - Caffeine Use Caffeine Use: Reports: Tea Other Caffeine Use: once in awhile - Alcohol Use Days Per Week of Alcohol Use: 0 - Recreational Drug Use Recreational Drug Use: No - Living Situation & Occupation Living situation: Reports: , with Spouse Occupation: Retired H&P Review of Systems - Review of Systems: Review Of Systems: See Below General: Reports: Fatigue HEENT: Reports: No Symptoms Pulmonary: Reports: No Symptoms Cardiovascular: Reports: Chest Pain, Dyspnea on Exertion Gastrointestinal: Reports: No Symptoms Genitourinary: Reports: No Symptoms Musculoskeletal: Reports: No Symptoms Skin: Reports: No Symptoms Psychiatric: Reports: No Symptoms Neurological: Reports: No Symptoms Hematologic/Lymphatic: Reports: No Symptoms Immunologic: Reports: No Symptoms Exam - Exam Exam: See Below - Vital Signs Vital Signs: Last Vital Signs Temp 97.5 F 09/09/17 08:13 Pulse 90 09/09/17 05:17 Resp 18 09/09/17 05:17 BP 101/49 L 09/09/17 05:17 Pulse Ox 93 L 09/09/17 02:30 Weight: 225 lb 8 oz - Exam General: Alert, Oriented, 4 HEENT: PERRLA, Hearing Intact, Mucosa Moist & [place], Nares Patent, Normal Nasal Septum, Posterior Pharynx Clear, Conjunctiva Clear, EOMI, EACs Clear, TMs Clear Neck: Supple, Trachea Midline, 2 Lungs: Clear to Auscultation, Normal Respiratory Effort Cardiovascular: Regular Rate, Regular Rhythm GI/Abdominal Exam: Normal Bowel Sounds, Soft, Non-Tender, No Organomegaly, No Distention, No Abnormal Bruit, No Mass, Pelvis Stable Rectal (Female) Exam: Heme - Stool Back Exam: Normal Inspection, Full Range of Motion, NT Extremities: Normal Inspection, Normal Range of Motion, Non-Tender, No Pedal Edema, Normal Capillary Refill Skin: Warm, Dry, Intact Neurological: Cranial Nerves Intact, Reflexes Equal Bilateral Neuro Extensive - Mental Status: Alert, Oriented x3, Normal Mood/Affect, Normal Cognition Neuro Extensive - Motor, Sensory, Reflexes: CN II-XII Intact, Normal Gait, Normal Reflexes Psychiatric: Alert, Normal Affect, Normal Mood - Patient Data Result Diagrams: 09/09/17 00:39 09/09/17 00:39 EKG INTERPRETATION Rhythm: NSR [place]: Normal ST-T: Normal *Q Meaningful Use (ADM) - VTE *Q VTE Criteria *Q: - Stroke *Q Stroke Criteria *Q: - AMI *Q AMI Criteria *Q: Problem List Initiated/Reviewed/Updated: Yes Orders Last 24hrs: Active Orders 24 hr Category Date Time Status Patient Status [ADT] Routine ADT 09/09/17 04:15 Active Up ad Humera [RC] ASDIRECTED Care 09/09/17 04:30 Active General [Regular Diet] [DIET] Diet 09/09/17 Breakfast Active CBC W/O DIFF,HEMOGRAM [HEME] Stat Lab 09/09/17 08:19 Ordered TROPONIN I [CHEM] Stat Lab 09/09/17 08:19 Ordered Levothyroxine Med 09/09/17 09:00 Ordered 150 mcg PO DAILY Losartan [Cozaar] Med 09/09/17 09:00 Ordered 25 mg PO BID Metoprolol Succinate [Toprol XL] Med 09/09/17 09:00 Ordered 50 mg PO DAILY Nitroglycerin [Nitrostat] Med 09/09/17 08:18 Ordered 0.4 mg SL ASDIRECTED PRN Sodium Chloride 0.9% [Normal Saline] 1,000 ml Med 09/09/17 04:30 Active IV ASDIRECTED Code Status [Resuscitation Status] Routine Resus Stat 09/09/17 04:27 Ordered Medication Orders Sodium Chloride (Normal Saline) 250 mls @ 10 mls/hr IV ASDIRECTED JOELLEN Last Admin: 09/09/17 01:50 Dose: 10 mls/hr Sodium Chloride (Normal Saline) 1,000 mls @ 50 mls/hr IV ASDIRECTED [facility] Levothyroxine Sodium (Levothyroxine) 150 mcg PO DAILY [facility] Losartan Potassium (Cozaar) 25 mg PO BID JOELLEN Metoprolol Succinate (Toprol Xl) 50 mg PO DAILY JOELLEN Nitroglycerin (Nitrostat) 0.4 mg SL ASDIRECTED PRN PRN Reason: Chest Pain Sodium Chloride (Saline Flush) 10 ml FLUSH ASDIRECTED PRN PRN Reason: Keep Vein Open Last Admin: 09/09/17 00:21 Dose: 10 ml Assessment/Plan Comment:: ATYPICAL CP 2/2 ACUTE ANEMIA 2/2 IRON DEF ANEMIA HX CAD DVT PRO, NO NEED, SHORT STAY PLAN: -ADMIT TO OBS WITH TELE -TRANSFUSE 2 UNITS RBC PER ER -RECHECK HB AND TROP, IF NEG AND NO MORE CP; PT MAY GO HOME -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
[2017-09-09] MEDS ORDERED: Metoprolol Succinate 50 MG Tab.ER PO SCH (09:00)
[2017-09-09] MEDS ORDERED: Levothyroxine 150 MCG Tab PO SCH (09:00)
[2017-09-09] MEDS ORDERED: Losartan 25 MG Tab PO SCH (09:00)
[2017-09-09] MEDS ORDERED: diphenhydrAMINE 50 MG/ML SDV IV ONE (11:46)
[2017-09-09] MEDS ORDERED: Acetaminophen 325 MG Tab PO ONE (11:46)
[2017-09-09 16:39] VITALS: BP 124/58
--- NOTE | 2017-09-09 19:02 | PCM.DCSUM1 ---
Discharge Summary - Hospital Course HPI Initial Comments: 72-year-old female comes in with symptoms of chest discomfort. She had onset of burning and pressure type tightness of her mid chest radiating toward her right shoulder and base of neck this evening about 2 hours ago. Upon arrival to ED she states the pain was much better and then just prior to my exam did start coming back again. She does have history of coronary artery disease with prior bypass surgery about 5 years ago. She does have history of hypothyroidism, hypertension and chronic anemia. She states that she has been getting somewhat frequent chest pains off and on for about the past month. The discomfort this evening was more severe and longer lasting than what she is typically been experiencing. There's been no nausea vomiting or diaphoresis. She states she has had low energy recently and "has not been doing much". In ER her Hb was 6.0, had a hx of iron def anemia and she used to get IV iron infusion for years but last time she did that was 4 months ago. No sign of GIB , her guaic was negative in ER. Pt had multiple EGD/C-SCOPY/CAPSULE with no significant findings as a reason for her anemia. - Discharge Data Discharge Date: 09/09/17 (Admit Date: 09/09/17) Discharge Disposition: Home, Self-Care 01 Condition: Good - Discharge Diagnosis/Problem(s) (1) Anemia SNOMED Code(s): 298727067 ICD Code: D64.9 - ANEMIA, UNSPECIFIED Status: Acute Priority: High Current Visit: Yes Qualifiers: Anemia type: iron deficiency Iron deficiency anemia type: unspecified iron deficiency Qualified Code(s): D50.9 - Iron deficiency anemia, unspecified (2) Atypical chest pain SNOMED Code(s): 083659100 ICD Code: R07.89 - OTHER CHEST PAIN Status: Acute Priority: High Current Visit: Yes - Patient Summary/Data Recommended Follow-up Testing/Procedures: We recommend Fany see her PCP within 5 days of discharge for a CBC and follow- up. It is also recommended she see hematology to investigate the cause of her anemia and suggest treatment. Hospital Course: Fany's hospital course was rather brief as she responded well to treatment. She is given 3 units packed red blood cells. Hemoglobin increased from 6.0- 9.6. Her color returned and she felt "much better." She was also given some fluids. she did express some atypical chest pain which she described as a "puck " moving from her right rib cage to right axillary region. This did resolve. Troponin was obtained, as was repeat troponin, and both were negative. proBNP was only slightly elevated at 364. TSH was normal. She is to take it easy for the next few days and follow-up with her PCP as directed. She will be discharged today. - Patient Instructions Diet: Heart Healthy Diet (iron rich foods), Drink 8-10+ Glasses/Day Activity: As Tolerated Driving: Do Not Drive Showering/Bathing: May Shower Notify Provider of: Fever, Increased Pain, Nausea and/or Vomiting (chest pain, shortness of breath, dyspnea on exertion) - Discharge Plan Home Medications: Home Meds Levothyroxine Sodium [Synthroid] 150 mcg PO DAILY 08/19/14 [History] Losartan [Cozaar] 25 mg PO BID 08/19/14 [History] Metoprolol Succinate [Toprol XL] 50 mg PO DAILY 08/19/14 [History] Nitroglycerin 0.4 mg SL ASDIRECTED PRN 08/19/14 [History] Patient Handouts: Blood Transfusion, [id number], Anemia, Nonspecific, Nonspecific Chest Pain, Midx-ky-Goit Forms: ED Department Discharge Referrals: Christy Oconnor, VP COMMUNICATIONS [Primary Care Provider] - - Discharge Summary/Plan Comment DC Time >30 min.: Yes (45 minutes) - General Info Date of Service: 09/09/17 Admission Dx/Problem (Free Text: Admission Diagnosis/Problem Admission Diagnosis/Problem Anemia Functional Status: Reports: Pain Controlled, Tolerating Diet, Ambulating, Urinating. Denies: New Symptoms - Review of Systems General: Reports: No Symptoms. Denies: Fever, Weakness, Fatigue, Malaise, Chills HEENT: Reports: No Symptoms. Denies: Headaches, Visual Changes Pulmonary: Reports: No Symptoms. Denies: Shortness of Breath, Pleuritic Chest Pain, Cough, Wheezing Cardiovascular: Reports: No Symptoms. Denies: Chest Pain, Palpitations, Dyspnea on Exertion Gastrointestinal: Reports: No Symptoms. Denies: Abdominal Pain, Constipation, Diarrhea, Nausea, Vomiting Genitourinary: Reports: No Symptoms. Denies: Dysuria, Frequency, Burning, Pain , Urgency Musculoskeletal: Reports: No Symptoms. Denies: Neck Pain, Shoulder Pain, Arm Pain, Hand Pain, Joint Pain Skin: Reports: No Symptoms Neurological: Reports: No Symptoms. Denies: Confusion, Dizziness, Headache, Numbness, Tingling, Trouble Speaking, Difficulty Walking, Weakness Psychiatric: Reports: No Symptoms - Patient Data Vitals - Most Recent: Last Vital Signs Temp 98.1 F 09/09/17 16:38 Pulse 86 09/09/17 16:38 Resp 16 09/09/17 16:38 BP 124/58 L 09/09/17 16:38 Pulse Ox 93 L 09/09/17 16:38 Weight - Most Recent: 225 lb 8 oz I&O - Last 24 hours: Intake & Output 09/09/17 09/09/17 09/09/17 06:59 14:59 22:59 Intake Total 675 460 580 Output Total 450 Balance 225 460 580 Lab Results - Last 24 hrs: Laboratory Results - last 24 hr 09/09/17 09/09/17 09/09/17 Range/Units 09:19 09:19 17:52 WBC 4.62 6.63 (3.98-10.04) K/mm3 RBC 3.57 L 4.28 (3.98-5.22) M/mm3 Hgb 7.9 L 9.6 L (11.2-15.7) gm/L Hct 26.7 L 31.8 L (34.1-44.9) % MCV 74.8 L 74.3 L (79.4-94.8) fl MCH 22.1 L 22.4 L (25.6-32.2) pg MCHC 29.6 L 30.2 L (32.2-35.5) g/dl RDW Std Deviation 44.8 44.0 (36.4-46.3) fL Plt Count 266 281 (182-369) K/mm3 MPV 11.1 11.0 (9.4-12.3) fl Troponin I < 0.017 (0.00-0.056) ng/mL TSH 3rd Generation (0.358-3.74) uIU/mL 09/09/17 Range/Units 17:52 WBC (3.98-10.04) K/mm3 RBC (3.98-5.22) M/mm3 Hgb (11.2-15.7) gm/L Hct (34.1-44.9) % MCV (79.4-94.8) fl MCH (25.6-32.2) pg MCHC (32.2-35.5) g/dl RDW Std Deviation (36.4-46.3) fL Plt Count (182-369) K/mm3 MPV (9.4-12.3) fl Troponin I (0.00-0.056) ng/mL TSH 3rd Generation 0.931 (0.358-3.74) uIU/mL Med Orders - Current: Current Medications Sodium Chloride (Normal Saline) 250 mls @ 10 mls/hr IV ASDIRECTED [facility] Last Admin: 09/09/17 17:03 Dose: 10 mls/hr Sodium Chloride (Normal Saline) 1,000 mls @ 50 mls/hr IV ASDIRECTED [facility] Levothyroxine Sodium (Levothyroxine) 150 mcg PO ACBREAKFAST [facility] Last Admin: 09/09/17 09:41 Dose: Not Given Losartan Potassium (Cozaar) 25 mg PO BID [facility] Last Admin: 09/09/17 09:41 Dose: 25 mg Metoprolol Succinate (Toprol Xl) 50 mg PO DAILY [facility] Last Admin: 09/09/17 09:40 Dose: 50 mg Nitroglycerin (Nitrostat) 0.4 mg SL ASDIRECTED PRN PRN Reason: Chest Pain Sodium Chloride (Saline Flush) 10 ml FLUSH ASDIRECTED PRN PRN Reason: Keep Vein Open Last Admin: 09/09/17 00:21 Dose: 10 ml Discontinued Medications Acetaminophen (Tylenol) 650 mg PO NOW ONE Stop: 09/09/17 11:47 Last Admin: 09/09/17 14:00 Dose: Not Given Diphenhydramine HCl (Benadryl) 25 mg IV ONETIME ONE Stop: 09/09/17 11:47 Last Admin: 09/09/17 14:00 Dose: Not Given Hydromorphone HCl (Dilaudid) 0.5 mg IVPUSH ONETIME ONE Stop: 09/09/17 00:31 Last Admin: 09/09/17 00:37 Dose: 0.5 mg Metoprolol Tartrate 5 mg/ (Sodium Chloride) 55 mls @ 100 mls/hr IV ONETIME ONE Stop: 09/09/17 01:22 Lorazepam (Ativan) 0.25 mg IVPUSH ONETIME ONE Stop: 09/09/17 00:31 Last Admin: 09/09/17 00:37 Dose: 0.25 mg Metoprolol Tartrate (Lopressor) 5 mg IVPUSH ONETIME ONE Stop: 09/09/17 00:52 Last Admin: 09/09/17 00:55 Dose: 5 mg Nitroglycerin (Nitro-Bid 2%) 1 gm TOP ONETIME ONE Stop: 09/09/17 00:32 Last Admin: 09/09/17 00:38 Dose: 1 gm - Exam General: Reports: Alert, Oriented, Cooperative HEENT: Reports: Pupils Equal, Pupils Reactive, EOMI, Mucous Membr. Moist/[place] Neck: Reports: Supple, Trachea Midline, No JVD, No Thyromegaly Lungs: Reports: Clear to Auscultation, Normal Respiratory Effort Cardiovascular: Reports: Regular Rate, Regular Rhythm GI/Abdominal Exam: Normal Bowel Sounds, Soft, Non-Tender, No Organomegaly, No Distention, No Abnormal Bruit, No Mass, Pelvis Stable (Female) Exam: Deferred Rectal (Female) Exam: Deferred Back Exam: Reports: Normal Inspection, Full Range of Motion Extremities: Normal Inspection, Normal Range of Motion, Non-Tender, No Pedal Edema, Normal Capillary Refill Skin: Reports: Warm, Dry, Intact Neurological: Reports: No New Focal Deficit Psy/Mental Status: Reports: Alert, Normal Affect, Normal Mood *Q Meaningful Use (DIS) - VTE *Q VTE Criteria *Q: - Stroke *Q Stroke Criteria *Q: - AMI *Q AMI Criteria *Q:
== END 2017-09-09 19:53 | disposition home or self-care (01) ==
LOC: JD.ED 23:49 → JD.MS 09-09 01:52
PROVIDERS: ADMIT Internal Medicine Cardiovascular Disease; ATTEND Internal Medicine Cardiovascular Disease
DX: D50.9 Iron deficiency anemia, unspecified (principal); R07.89 Other chest pain; I25.10 Atherosclerotic heart disease of native coronary artery without angina pectoris; E03.9 Hypothyroidism, unspecified; I10 Essential (primary) hypertension; K21.9 Gastro-esophageal reflux disease without esophagitis; F32.9 Major depressive disorder, single episode, unspecified; Z85.42 Personal history of malignant neoplasm of other parts of uterus; Z95.5 Presence of coronary angioplasty implant and graft; Z96.652 Presence of left artificial knee joint; Z95.1 Presence of aortocoronary bypass graft; Z79.899 Other long term (current) drug therapy; Z91.02 Food additives allergy status; Z88.8 Allergy status to other drugs, medicaments and biological substances; Z90.89 Acquired absence of other organs; Z90.710 Acquired absence of both cervix and uterus; Z98.49 Cataract extraction status, unspecified eye; Z98.890 Other specified postprocedural states
CPT/HCPCS: 36415; 71010; 80053; 83880; 84443; 84484; 85025; 85027; 93005; 96374; 96375; 99285; A9270; J1170; J2060; J7050; P9016; 36430; 86850; 86900; 86901; 86922; 93010; 96361; 99284; G0378; J3490

== ENCOUNTER 2018-03-25 09:25 | Day surgery (SDC) | payer MEDICARE, BC ==
--- NOTE | 2018-03-25 10:46 | PCM.PREANE ---
Preanesthetic Assessment - Procedure Proposed Procedure: cataract right - Anesthesia/Transfusion/Family Hx Anesthesia History: Prior Anesthesia Without Reaction Family History of Anesthesia Reaction: No Transfusion History: Prior Transfusion Without Reaction Type of Transfusion Reactions: Reports: Unknown - Review of Systems General: No Symptoms Pulmonary: No Symptoms Cardiovascular: No Symptoms Gastrointestinal: No Symptoms Neurological: Other (stroke- brain bleed- 2012) Other: Reports: Thyroid Problems - Physical Assessment NPO Status Date: 03/24/18 NPO Status Time: 18:00 Pulse: 68 O2 Sat by Pulse Oximetry: 96 Respiratory Rate: 16 Blood Pressure: 138/73 Temperature: 97.8 F Height: 5 ft 3 in Weight: 99.79 kg ASA Class: 2 Mental Status: Alert & Oriented x3 Airway Class: Mallampati = 1 Dentition: Reports: Normal Dentition, [place](s) Thyro-Mental Finger Breadths: 3 Mouth Opening Finger Breadths: 3 ROM/Head Extension: Full Lungs: Clear to Auscultation, Normal Respiratory Effort Cardiovascular: Regular Rate, Regular Rhythm - Allergies Allergies/Adverse Reactions: Allergies Allergy/AdvReac Type Severity Reaction Status Date / Time lisinopril Allergy Swelling Verified 03/24/18 09:46 red dye Allergy Rash Verified 03/24/18 09:46 - Blood Blood Available: No - Acknowledgements Anesthesia Type Planned: MAC Pt an Appropriate Candidate for the Planned Anesthesia: Yes Alternatives and Risks of Anesthesia Discussed w Pt/Guardian: Yes Pt/Guardian Understands and Agrees with Anesthesia Plan: Yes PreAnesthesia Questionnaire HEENT History: Reports: Cataract Cardiovascular History: Reports: Bypass, CAD, Hypertension Other Cardiovascular History: states bypass grafts collapsed "because iron level was so low, it wouldn't pump the blood." Was then stented. Respiratory History: Reports: Pneumonia, Recurrent Gastrointestinal History: Reports: GERD, Hiatal Hernia COMPENSATION DIRECTOR History: Reports: Musculoskeletal History: Reports: Fracture, Other (See Below) Neurological History: Reports: CVA, Other (See Below) Other Neuro History: due to anemia during heart surgery.----> pt states more a brain bleed and not a stroke Psychiatric History: Reports: Depression, Mood Swings Endocrine/Metabolic History: Reports: Hypothyroidism Other Endocrine/Metabolic History: hypoglycemic. Hematologic History: Reports: Anemia, Blood Transfusion(s), Iron Deficiency Other Hematologic History: iron transfusions. Oncologic (Cancer) History: Reports: Uterine - Infectious Disease History Infectious Disease History: Reports: Chicken Pox, Measles, Mumps - Past Surgical History HEENT Surgical History: Reports: Cataract Surgery, Tonsillectomy Cardiovascular Surgical History: Reports: Coronary Artery Bypass Respiratory Surgical History: Reports: None GI Surgical History: Reports: Colonoscopy, EGD Female Surgical History: Reports: Hysterectomy, Salpingo-Oophorectomy, Tubal Ligation Endocrine Surgical History: Reports: None Neurological Surgical History: Reports: None Musculoskeletal Surgical History: Reports: Knee Replacement Other Musculoskeletal Surgeries/Procedures:: left knee replacement Dermatological Surgical History: Reports: None - SUBSTANCE USE Smoking Status *Q: Never Smoker Tobacco Use Within Last Twelve Months: No Second Hand Smoke Exposure: No Recreational Drug Use History: No - HOME MEDS Home Medications: Home Meds Levothyroxine Sodium [Synthroid] 137 mcg PO DAILY 08/19/14 [History] Nitroglycerin 0.4 mg SL ASDIRECTED PRN 08/19/14 [History] Calcium Magnesium Zinc 1 tab PO DAILY 03/24/18 [History] DULoxetine [Cymbalta] 30 mg PO DAILY 03/24/18 [History] Pantoprazole Sodium [Protonix] 40 mg PO DAILY 03/24/18 [History] - CURRENT (IN HOUSE) MEDS Current Meds: Current Medications Brimonidine Tartrate (Alphagan 0.2% Ophth Soln) 0 ml EYERT ASDIRECTED JOELLEN Stop: 03/25/18 19:00 Cefuroxime Sodium (Zinacef) 0 mg EYERT ASDIRECTED JOELLEN Stop: 03/25/18 19:00 Lidocaine HCl (Xylocaine-Mpf 1%) 0 ml INJECT ASDIRECTED JOELLEN Stop: 03/25/18 19:00 Phenylephrine HCl (Ren-Synephrine 2.5% Ophth Soln) 0 ml EYERT ASDIRECTED JOELLEN Stop: 03/25/18 19:00 Pilocarpine HCl (Pilocar 4% Ophth Soln) 0 ml EYERT ASDIRECTED JOELLEN Stop: 03/25/18 19:00 Polymyxin/Trimethoprim Sulfate (Polytrim Ophth Soln) 0 ml EYERT ASDIRECTED JOELLEN Stop: 03/25/18 19:00 Tetracaine HCl (Tetracaine 0.5% Steri-Unit Sam[place]) 0 ml EYERT ASDIRECTED JOELLEN Stop: 03/25/18 19:00 Tropicamide (Mydriacyl 1% Ophth Soln) 0 ml EYERT ASDIRECTED JOELLEN Stop: 03/25/18 19:00
[2018-03-25] MEDS: Polymyxin B/Trimethoprim 10 ML Bottle EYERT SCH ×4 (10:48→12:34)
[2018-03-25] MEDS: Brimonidine 0.2% Ophth Soln 5 ML Bottle EYERT SCH ×4 (10:53→12:34)
[2018-03-25] MEDS: Phenylephrine 2.5% Ophth Soln 2 ML Bot EYERT SCH ×6 (10:57→12:14)
[2018-03-25] MEDS: Cefuroxime 10 MG/ML SYRINGE EYERT SCH ×2 (11:00→12:33)
[2018-03-25] MEDS: Lidocaine 1% PF 2 ML SDV INJECT SCH ×2 (11:00→12:23)
[2018-03-25] MEDS: Tetracaine HCl/PF 0.5% 4 ML Bottle EYERT SCH ×3 (11:00→12:23)
[2018-03-25] MEDS: Pilocarpine 4% Ophth Soln 15 ML Bot EYERT SCH ×2 (11:01→12:34)
[2018-03-25] MEDS: Tropicamide 1% Ophth Soln 3 ML Bottle EYERT SCH ×4 (11:05→11:52)
--- NOTE | 2018-03-25 12:37 | PCM48HPAN ---
Post Anesthesia Note - EVALUATION WITHIN 48HRS OF ANESTHETIC Vital Signs in Normal Range: Yes Respiratory Function Stable: Yes Airway Patent: Yes Cardiovascular Function Stable: Yes Hydration Status Stable: Yes Pain Control Satisfactory: Yes Nausea and Vomiting Control Satisfactory: Yes Mental Status Recovered: Yes Pulse Rate: 72 SaO2: 98 Resp Rate: 20 Temperature: 36 C Blood Pressure: 169/86
[2018-03-25 12:47] VITALS: BP 171/82
== END 2018-03-25 12:45 | disposition home or self-care (01) ==
LOC: JD.SDS 09:25
PROVIDERS: ATTEND Ophthalmology
DX: H25.811 Combined forms of age-related cataract, right eye (principal); I10 Essential (primary) hypertension; I25.10 Atherosclerotic heart disease of native coronary artery without angina pectoris; E05.90 Thyrotoxicosis, unspecified without thyrotoxic crisis or storm; H16.223 Keratoconjunctivitis sicca, not specified as Sjogren's, bilateral; H16.103 Unspecified superficial keratitis, bilateral; H02.834 Dermatochalasis of left upper eyelid; H02.831 Dermatochalasis of right upper eyelid; K21.9 Gastro-esophageal reflux disease without esophagitis; F32.9 Major depressive disorder, single episode, unspecified; Z98.42 Cataract extraction status, left eye; Z96.1 Presence of intraocular lens; Z79.82 Long term (current) use of aspirin; Z79.899 Other long term (current) drug therapy; Z88.8 Allergy status to other drugs, medicaments and biological substances; Z91.048 Other nonmedicinal substance allergy status
CPT/HCPCS: 66984; C1780; J0697; J2001; A9270-GY

== ENCOUNTER 2021-01-12 10:00 | Day surgery (SDC) | payer MEDICARE, BC ==
[~2021-01-12 10:00] MED LIST: Lactated Ringers 1,000 ML IV SCH; Lidocaine 1%/Sod Bicarbonate in NS 8.4% 1 ML Syringe IDERM PRN; Sodium Chloride 0.9% 10 ML Syringe FLUSH PRN
--- NOTE | 2021-01-12 10:44 | PCM.PREANE ---
Preanesthetic Assessment - Procedure Proposed Procedure: right second toe correction - Anesthesia/Transfusion/Family Hx Anesthesia History: Prior Anesthesia Reaction (nausea) Family History of Anesthesia Reaction: No Transfusion History: Prior Transfusion Without Reaction Type of Transfusion Reactions: Reports: Unknown - Review of Systems General: No Symptoms Pulmonary: No Symptoms Cardiovascular: Dyspnea on Exertion Gastrointestinal: No Symptoms Neurological: Difficulty Walking Other: Reports: Easy Bruising, Anxiety - Physical Assessment NPO Status Date: 01/11/21 NPO Status Time: 00:00 Height: 1.57 m Weight: 93.2 kg ASA Class: 3 Mental Status: Alert & Oriented x3 Dentition: Reports: [place](s), Broken Tooth/Teeth (back top) Thyro-Mental Finger Breadths: 3 Mouth Opening Finger Breadths: 3 ROM/Head Extension: Full Lungs: Clear to Auscultation, Normal Respiratory Effort Cardiovascular: Regular Rate, Regular Rhythm - Imaging/EKG Impressions: EKG SR rate 83 - Allergies Allergies/Adverse Reactions: Allergies Allergy/AdvReac Type Severity Reaction Status Date / Time gold Au 198 Allergy Rash Verified 01/11/21 11:09 hydrochlorothiazide Allergy Hives Verified 01/11/21 11:09 lamotrigine [From Lamictal] Allergy Itching Verified 01/11/21 11:09 lisinopril Allergy Swelling Verified 01/11/21 11:09 red dye Allergy Rash Verified 01/11/21 11:09 aspirin AdvReac Bleeding Verified 01/11/21 11:09 Uqikzbu-Lpa-Twr Reductase AdvReac Muscle Verified 01/11/21 11:09 Inhibitor Aches - Blood Blood Available: No Product(s) Available: None - Anesthesia Plan Pre-Op Medication Ordered: None - Acknowledgements Anesthesia Type Planned: General Anesthesia Pt an Appropriate Candidate for the Planned Anesthesia: Yes Alternatives and Risks of Anesthesia Discussed w Pt/Guardian: Yes Pt/Guardian Understands and Agrees with Anesthesia Plan: Yes PreAnesthesia Questionnaire HEENT History: Reports: Cataract Cardiovascular History: Reports: Bypass, CAD, High Cholesterol, Hypertension, SOB on Exertion, Stents Other Cardiovascular History: mitral valve disease, aneurysm, angina Respiratory History: Reports: Pneumonia, Recurrent, SOB Gastrointestinal History: Reports: GERD, Hiatal Hernia Genitourinary History: Reports: None 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 Hematologic History: Reports: Anemia, Blood Transfusion(s), Iron Deficiency Immunologic History: Reports: None Oncologic (Cancer) History: Reports: Uterine Dermatologic History: Reports: Other (See Below) Other Dermatologic History: yonatan lesion, tinea corposis - Infectious Disease History Infectious Disease History: Reports: None - Past Surgical History HEENT Surgical History: Reports: Cataract Surgery, Tonsillectomy Cardiovascular Surgical History: Reports: Coronary Artery Bypass, Coronary Artery Stent Respiratory Surgical History: Reports: None GI Surgical History: Reports: Colonoscopy, EGD Female Surgical History: Reports: Hysterectomy, Salpingo-Oophorectomy, Tubal Ligation Other Female Surgeries/Procedures: uterine cancer. Endocrine Surgical History: Reports: None Neurological Surgical History: Reports: None Musculoskeletal Surgical History: Reports: Knee Replacement Other Musculoskeletal Surgeries/Procedures:: left knee replacement Oncologic Surgical History: Reports: None Dermatological Surgical History: Reports: None - SUBSTANCE USE Tobacco Use Status *Q: Never Tobacco User Tobacco Use Within Last Twelve Months: No Second Hand Smoke Exposure: No Days Per Week of Alcohol Use: 0 Number of Drinks Per Day: 0 Total Drinks Per Week: 0 Recreational Drug Use History: No - HOME MEDS Home Medications: Home Meds Nitroglycerin 0.4 mg SL ASDIRECTED PRN 08/19/14 [History] Ferrous Sulfate [Iron] 650 mg PO BID 01/11/21 [History] Sertraline [Zoloft] 25 mg PO BEDTIME 01/11/21 [History] Acetaminophen/HYDROcodone [[place] 325-5 MG] 1 - 2 tab PO Q6H PRN #15 tablet 01/12/21 [Rx] Aspirin [Aspirin EC] 325 mg PO BID #60 tab 01/12/21 [Rx] - CURRENT (IN HOUSE) MEDS Current Meds: Current Medications Lactated Ringer's (Ringers, Lactated) 1,000 mls @ 125 mls/hr IV ASDIRECTED JOELLEN Stop: 01/12/21 23:00 Lidocaine/Sodium Bicarbonate (Lidocaine 1%/Sod Bicarbonate In Ns 8.4% 1 Ml Syringe) 0.25 ml IDERM ONETIME PRN PRN Reason: Prior to IV Start Stop: 01/12/21 18:00 Sodium Chloride (Sodium Chloride 0.9% 10 Ml Syringe) 10 ml FLUSH ASDIRECTED PRN PRN Reason: Keep Vein Open Stop: 01/12/21 18:00
[2021-01-12] MEDS ORDERED: Bupivacaine 0.25% 10 ML SDV ONE ×2 (12:12→12:18)
[2021-01-12] MEDS ORDERED: Triamcinolone Acetonide 40 MG/ML 1 ML SDV ONE (12:18)
[2021-01-12] MEDS ORDERED: Ondansetron 4 MG/2 ML SDV ONE (12:36)
[2021-01-12] MEDS ORDERED: ceFAZolin 1 GM Vial ONE (12:36)
[2021-01-12] MEDS ORDERED: fentaNYL 100 MCG/2 ML SDV ONE (12:36)
[2021-01-12] MEDS ORDERED: Propofol 200 MG/20 ML SDV ONE (12:36)
[2021-01-12] MEDS ORDERED: Lidocaine 1% 4 ML ONE (12:36)
[2021-01-12] MEDS ORDERED: Midazolam 1 MG/ML 2 ML SDV ONE (12:36)
--- NOTE | 2021-01-12 14:08 | CR ---
Right foot: 2 views of the right foot were obtained. Study shows resection of the distal proximal phalanx of the second toe. Longitudinal pin affixes the toe. Fluoroscopy time is given as 2.8 seconds. Impression: 1. Procedural study as noted above. Diagnostic code #2
[2021-01-12 15:47] VITALS: BP 150/62; PULSE 74
--- NOTE | 2021-01-12 15:56 | PCM48HPAN ---
Post Anesthesia Note - EVALUATION WITHIN 48HRS OF ANESTHETIC Vital Signs in Normal Range: Yes Patient Participated in Evaluation: Yes Respiratory Function Stable: Yes Airway Patent: Yes Cardiovascular Function Stable: Yes Hydration Status Stable: Yes Pain Control Satisfactory: Yes Nausea and Vomiting Control Satisfactory: Yes Mental Status Recovered: Yes Vital Signs: Last Vital Signs Temp 37.1 C 01/12/21 14:50 Pulse 74 01/12/21 14:50 Resp 16 01/12/21 14:50 BP 150/62 H 01/12/21 14:50 Pulse Ox 96 01/12/21 14:50
--- NOTE | 2021-01-20 08:50 | PCM.OPNOTE ---
- General Post-Op/Procedure Note Date of Surgery/Procedure: 01/12/21 Operative Procedure(s): right second toe claw toe corretion with partial proximal phlananx resection and extensor tendon lengthening and dorsal MTP joint capsulotomy with percutaneous pinning Pre Op Diagnosis: right second claw toe Post-Op Diagnosis: Same Anesthesia Technique: MAC, Regional Block Primary Surgeon: Roverto Szymanski Anesthesia Provider: Kori Schilling Membership Director: Tamara Bocanegra in mLs: 5 Complications: None Condition: Good
--- NOTE | 2021-01-22 18:41 | OR ---
DATE OF OPERATION: 01/12/2021 SURGEON: Roverto Szymanski MD OPERATION PERFORMED: Right second toe claw toe correction with partial proximal phalanx resection, extensor tendon lengthening, and dorsal MTP joint capsulotomy with percutaneous pinning. PREOPERATIVE DIAGNOSIS: Right second claw toe. POSTOPERATIVE DIAGNOSIS: Right second claw toe. ANESTHESIA: MAC with regional block. ANESTHESIOLOGIST: Annamaria Mina. NAIL MAKING MACHINE SETTER: Tamara Bcoanegra PA-C ESTIMATED BLOOD LOSS: 5 mL. COMPLICATIONS: None. CONDITION: Stable. DESCRIPTION OF PROCEDURE: The patient was identified in the preoperative holding area. Proper site was marked and identified by the surgeon. The patient was taken back to the operating theater where after adequate anesthesia, the patient's right lower extremity had a nonsterile tourniquet applied and was then sterilely prepped and draped in the usual sterile fashion. OR time-out was performed. The patient received 2 g IV Ancef. Ankle block and digital block were then done at this time. A standard dorsal incision was made over the MTP joint as well as the PIP joint of the right second toe after Esmarch was used to exsanguinate the lower extremity. Dissection was taken down to the extensor tendon. Extensor tendon then had a Z-lengthening done, and a dorsal capsulotomy was then done of the MTP joint secondary to the significant contracture. There was a fixed contracture of the claw toe deformity. So, at this time, I did perform a proximal phalanx head resection. Guide pin was then placed in retrograde fashion through the resection all the way into the metatarsal with complete correction of the claw toe. Adequate saline was irrigated through the wound. 4-0 Vicryl was then used for the extensor tendon lengthening, 3-0 Vicryl was used subcutaneously, and nylon was used for closure of the skin. The patient then had a sterile soft dressing applied and a posterior slab splint and was sent to PACU in stable condition. MMODAL /[id number]
== END 2021-01-12 15:30 | disposition home or self-care (01) ==
LOC: JD.SDS 10:00
PROVIDERS: ATTEND Orthopaedic Surgery
DX: M20.5X1 Other deformities of toe(s) (acquired), right foot (principal); M24.574 Contracture, right foot; B35.4 Tinea corporis; K90.9 Intestinal malabsorption, unspecified; D50.8 Other iron deficiency anemias; E78.00 Pure hypercholesterolemia, unspecified; I25.10 Atherosclerotic heart disease of native coronary artery without angina pectoris; I10 Essential (primary) hypertension; E03.9 Hypothyroidism, unspecified; E66.01 Morbid (severe) obesity due to excess calories; K21.9 Gastro-esophageal reflux disease without esophagitis; Z86.73 Personal history of transient ischemic attack (TIA), and cerebral infarction without residual deficits; Z79.899 Other long term (current) drug therapy; Z88.8 Allergy status to other drugs, medicaments and biological substances; Z91.02 Food additives allergy status; Z91.048 Other nonmedicinal substance allergy status; Z98.890 Other specified postprocedural states; Z68.35 Body mass index [BMI] 35.0-35.9, adult
CPT/HCPCS: 28270; 28285; 76000; C1713; J0690; J2704; J3010; J3490; J7120; 01480; 99100; J2250; J2405; J3301

== ENCOUNTER 2021-05-02 18:42 | Emergency (ER) | payer MEDICARE, BC ==
--- NOTE | 2021-05-02 18:50 | EDM.PDOC ---
<Tanmay Hoyos - Last Filed: 05/02/21 18:50> ED HPI GENERAL MEDICAL PROBLEM - General Chief Complaint: Neuro Symptoms/Deficits Stated Complaint: [facility] Time Seen by Provider: 05/02/21 18:42 - Related Data Allergies Allergy/AdvReac Type Severity Reaction Status Date / Time gold Au 198 Allergy Rash Verified 01/12/21 11:20 hydrochlorothiazide Allergy Hives Verified 01/12/21 11:20 lamotrigine [From Lamictal] Allergy Itching Verified 01/12/21 11:20 lisinopril Allergy Swelling Verified 01/12/21 11:20 red dye Allergy Rash Verified 01/12/21 11:20 aspirin AdvReac Bleeding Verified 01/12/21 11:20 [id number] Reductase AdvReac Muscle Verified 01/12/21 11:20 Inhibitor Aches Home Meds: Home Meds Nitroglycerin 0.4 mg SL ASDIRECTED PRN 08/19/14 [History] Ferrous Sulfate [Iron] 650 mg PO BID 01/11/21 [History] Sertraline [Zoloft] 25 mg PO BEDTIME 01/11/21 [History] Acetaminophen/HYDROcodone [[place] 325-5 MG] 1 - 2 tab PO Q6H PRN #15 tablet 01/12/21 [Rx] Aspirin [Aspirin EC] 325 mg PO BID #60 tab 01/12/21 [Rx] Past Medical History HEENT History: Reports: Cataract Cardiovascular History: Reports: Bypass, CAD, High Cholesterol, Hypertension, SOB on Exertion, Stents Other Cardiovascular History: mitral valve disease, aneurysm, angina Respiratory History: Reports: Pneumonia, Recurrent, SOB Gastrointestinal History: Reports: GERD, Hiatal Hernia Genitourinary History: Reports: None INTERVENTIONAL RADIOLOGIST History: Reports: Musculoskeletal History: Reports: Fracture, Other (See Below) Neurological History: Reports: Brain Injury, CVA, Other (See Below) Other Neuro History: memory loss, imbalance, headaches, cerebral infarct, subdural hematoma Psychiatric History: Reports: Anxiety, Depression, Mood Swings Endocrine/Metabolic History: Reports: Hypothyroidism, Obesity/BMI 30+, Vitamin D Deficiency, Other (See Below) Other Endocrine/Metabolic History: hypoglycemic. Hematologic History: Reports: Anemia, Blood Transfusion(s), Iron Deficiency Immunologic History: Reports: None Oncologic (Cancer) History: Reports: Uterine Dermatologic History: Reports: Other (See Below) Other Dermatologic History: yonatan lesion, tinea corposis - Infectious Disease History Infectious Disease History: Reports: None - Past Surgical History HEENT Surgical History: Reports: Cataract Surgery, Tonsillectomy Cardiovascular Surgical History: Reports: Coronary Artery Bypass, Coronary Artery Stent Respiratory Surgical History: Reports: None GI Surgical History: Reports: Colonoscopy, EGD Female Surgical History: Reports: Hysterectomy, Salpingo-Oophorectomy, Tubal Ligation Other Female Surgeries/Procedures: uterine cancer. Endocrine Surgical History: Reports: None Neurological Surgical History: Reports: None Musculoskeletal Surgical History: Reports: Knee Replacement Other Musculoskeletal Surgeries/Procedures:: left knee replacement Oncologic Surgical History: Reports: None Dermatological Surgical History: Reports: None Social & Family History - Family History Family Medical History: No Pertinent Family History - Caffeine Use Caffeine Use: Reports: Tea Other Caffeine Use: once in awhile - Living Situation & Occupation Living situation: Reports: , with Spouse Occupation: Retired Departure - Departure Disposition: DC/Tfer to [facility] 02 Clinical Impression: Chest pain of uncertain etiology, Elevated troponin - Discharge Information Referrals: Agapito Collins MD [Primary Care Provider] - Forms: ED Department Discharge <Lux Marcelino - Last Filed: 05/02/21 22:12> ED HPI GENERAL MEDICAL PROBLEM - General Source of Information: Reports: Patient, Family ( + woman) History Limitations: Reports: No Limitations - History of Present Illness INITIAL COMMENTS - FREE TEXT/NARRATIVE: A stroke alert was called for this patient. Mrs. Dobbs is a very pleasant 76-year-old woman who is now brought to the ED by EMS after she developed relatively rapid onset upper left chest pain radiating up the left side of her neck to her ear and down her right lower extremity to her proximal forearm around 17:15 this evening. She describes the pain in her left chest as "hard" and "heavy", whereas she describes the sensation going up her left neck and down her left arm as a "numbing" and "throbbing". She has not identified any modifiers, although she states that she took an Aleve before calling EMS, and that EMS subsequently gave her 4 baby aspirin en route, and that she now feels substantially better, although the sensation has not resolved completely. She denies associated dyspnea, nausea, diaphoresis, or sense of impending doom. The patient acknowledges that she has had similar symptoms, although less severe, and associated with a throbbing sensation in her head, approximately weekly, since 2011. Today's symptoms are not as severe and do not involve a throbbing head, therefore she feels that today's symptoms are unique. She states that she has had prior work-ups for her head throbbing, but no prior work-up for her chest symptoms. Here in the ED, the patient's initial BP is found to be elevated at 168/93, otherwise, she is hemodynamically stable, afebrile, saturating 96% on room air. She appears to be relatively comfortable, in no acute distress. Other than her recurrent chest, neck, and arm symptoms, the patient denies having a recent fever, chills, sore throat, ear pain, nasal or sinus congestion, cough, dyspnea, palpitations, nausea, vomiting, constipation, diarrhea, abdominal pain, urinary symptoms, recent weight gain or weight loss, recent bloody bowel movements or black bowel movements, recent joint aches, headaches, or rashes. The patient's PCP is Dr. Agapito Collins. She states that she has received 2 [facility] vaccinations. ED ROS GENERAL - Review of Systems Review Of Systems: Comprehensive ROS is negative, except as noted in HPI. ED EXAM, GENERAL - Physical Exam Exam: See Below Exam Limited By: No Limitations General Appearance: Alert, WD/WN, No Apparent Distress Eye Exam: Bilateral Eye: EOMI, Normal Inspection Ears: Normal External Exam, Hearing Grossly Normal Nose: Normal Inspection Throat/Mouth: Normal Inspection, Normal Lips, Normal Voice, No Airway Compromise Head: Atraumatic, Normocephalic Neck: Normal Inspection, Supple, Non-Tender, Full Range of Motion, Carotid Bruit (left) Respiratory/Chest: No Respiratory Distress, Lungs Clear, Normal Breath Sounds, No Accessory Muscle Use, Chest Non-Tender Cardiovascular: Normal Peripheral Pulses, Regular Rate, Rhythm, No Gallop, No JVD, No Murmur, No Rub. No: Diastolic Murmur, Systolic Murmur Peripheral Pulses: 3+: Radial (L), Radial (R) GI/Abdominal: Normal Bowel Sounds, Soft, Non-Tender, No Organomegaly, No Distention, No Abnormal Bruit, No Mass Back Exam: Normal Inspection, Full Range of Motion, NT Extremities: Normal Inspection, Normal Range of Motion, No Pedal Edema, Normal Capillary Refill Neurological: Alert, Oriented, Normal Cognition, No Motor/Sensory Deficits Psychiatric: Normal Affect Skin Exam: Warm, Dry, Intact, Normal Color, No Rash #1 Interpretation EKG Date: 05/02/21 Time: 19:03 Rhythm: NSR Rate (Beats/Min): 84 Taylor: Normal P-Wave: Enlarged (? LAE. Borderline 1st degree AVB.) QRS: Normal ST-T: Normal QT: Normal Comparison: No Change (09/09/2017) Course - Vital Signs Last Recorded V/S: Last Vital Signs Temp 36.9 C 05/02/21 18:49 Pulse 93 05/02/21 18:49 Resp 20 05/02/21 18:49 BP 168/93 H 05/02/21 18:49 Pulse Ox 96 05/02/21 18:49 - Orders/Labs/Meds Orders: Active Orders 24 hr Category Date Time Status EKG Documentation Completion [RC] STAT Care 05/02/21 18:48 Active Ang Chest [CT] Stat Exams 05/02/21 19:28 Taken Chest 1V Frontal [CR] Stat Exams 05/02/21 18:48 Taken Head wo Cont [CT] Stat Exams 05/02/21 18:48 Taken Heparin Sodium/D5W [Heparin 25,000 Units in D5W 500 ML] Med 05/02/21 21:30 Active 25,000 units in 500 ml IV TITRATE Sodium Chloride 0.9% [Normal Saline] 1,000 ml Med 05/02/21 19:30 Active IV ASDIRECTED Sodium Chloride 0.9% [Normal Saline] 100 ml Med 05/02/21 20:00 Active IV ASDIRECTED Sodium Chloride 0.9% [Saline Flush] Med 05/02/21 20:00 Active 10 ml FLUSH ASDIRECTED Medication Orders Sodium Chloride (Normal Saline) 1,000 mls @ 150 mls/hr IV ASDIRECTED JOELLEN Last Admin: 05/02/21 20:55 Dose: 150 mls/hr Documented by: LAUREN Sodium Chloride (Normal Saline) 100 mls @ 60 mls/hr IV ASDIRECTED JOELLEN Last Admin: 05/02/21 20:32 Dose: 60 mls/hr Documented by: THOMAS Heparin Sodium/Dextrose (Heparin 25,000 Units In D5w 500 Ml) 25,000 units in 500 mls @ 20 mls/hr IV TITRATE JOELLEN; Protocol Last Admin: 05/02/21 21:40 Dose: 1,000 units/hr, 20 mls/hr Documented by: LAUREN Cosigned by: RAHEL Sodium Chloride (Sodium Chloride 0.9% 10 Ml Syringe) 10 ml FLUSH ASDIRECTED JOELLEN Last Admin: 05/02/21 20:32 Dose: 10 ml Documented by: THOMAS Labs: Laboratory Tests 05/02/21 05/02/21 05/02/21 Range/Units 19:36 19:36 19:36 WBC 6.35 (3.98-10.04) K/mm3 RBC 3.29 L (3.98-5.22) M/mm3 Hgb 9.4 L (11.2-15.7) gm/dl Hct 31.6 L (34.1-44.9) % MCV 96.0 H D (79.4-94.8) fl MCH 28.6 (25.6-32.2) pg MCHC 29.7 L (32.2-35.5) g/dl RDW Std Deviation 51.5 H (36.4-46.3) fL Plt Count 283 (182-369) K/mm3 MPV 9.9 (9.4-12.3) fl Neut % (Auto) 81.6 H (34.0-71.1) % Lymph % (Auto) 9.4 L (19.3-51.7) % [place] % (Auto) 6.6 (4.7-12.5) % Eos % (Auto) 1.9 (0.7-5.8) Baso % (Auto) 0.2 (0.1-1.2) % Neut # (Auto) 5.18 (1.56-6.13) K/mm3 Lymph # (Auto) 0.60 L (1.18-3.74) K/mm3 [place] # (Auto) 0.42 H (0.24-0.36) K/mm3 Eos # (Auto) 0.12 (0.04-0.36) K/mm3 Baso # (Auto) 0.01 (0.01-0.08) K/mm3 Manual Slide Review Abnormal smear PT 10.1 (9.7-12.0) SECONDS INR 0.94 APTT 25.3 (21.7-31.4) SECONDS Sodium 144 (136-145) mEq/L Potassium 3.7 (3.5-5.1) mEq/L Chloride 108 H (98-107) mEq/L Carbon Dioxide 26 (21-32) mEq/L Anion Gap 13.7 (5-15) BUN 18 (7-18) mg/dL Creatinine 0.8 (0.55-1.02) mg/dL Est Cr Clr Drug Dosing TNP Estimated GFR (MDRD) > 60 (>60) mL/min BUN/Creatinine Ratio 22.5 H (14-18) Glucose 137 H (70-99) mg/dL Calcium 8.5 (8.5-10.1) mg/dL Total Bilirubin 0.1 L (0.2-1.0) mg/dL AST 19 (15-37) U/L ALT 21 (14-59) U/L Alkaline Phosphatase 42 L (46-116) U/L Troponin I 0.661 H* (0.00-0.056) ng/mL C-Reactive Protein (<1.0) mg/dL Total Protein 6.4 (6.4-8.2) g/dl Albumin 3.3 L (3.4-5.0) g/dl Globulin 3.1 gm/dL Albumin/Globulin Ratio 1.1 (1-2) SARS-CoV-2 RNA (MELISSA) (NEGATIVE) 05/02/21 05/02/21 Range/Units 19:36 20:54 WBC (3.98-10.04) K/mm3 RBC (3.98-5.22) M/mm3 Hgb (11.2-15.7) gm/dl Hct (34.1-44.9) % MCV (79.4-94.8) fl MCH (25.6-32.2) pg MCHC (32.2-35.5) g/dl RDW Std Deviation (36.4-46.3) fL Plt Count (182-369) K/mm3 MPV (9.4-12.3) fl Neut % (Auto) (34.0-71.1) % Lymph % (Auto) (19.3-51.7) % [place] % (Auto) (4.7-12.5) % Eos % (Auto) (0.7-5.8) Baso % (Auto) (0.1-1.2) % Neut # (Auto) (1.56-6.13) K/mm3 Lymph # (Auto) (1.18-3.74) K/mm3 [place] # (Auto) (0.24-0.36) K/mm3 Eos # (Auto) (0.04-0.36) K/mm3 Baso # (Auto) (0.01-0.08) K/mm3 Manual Slide Review PT (9.7-12.0) SECONDS INR APTT (21.7-31.4) SECONDS Sodium (136-145) mEq/L Potassium (3.5-5.1) mEq/L Chloride (98-107) mEq/L Carbon Dioxide (21-32) mEq/L Anion Gap (5-15) BUN (7-18) mg/dL Creatinine (0.55-1.02) mg/dL Est Cr Clr Drug Dosing Estimated GFR (MDRD) (>60) mL/min BUN/Creatinine Ratio (14-18) Glucose (70-99) mg/dL Calcium (8.5-10.1) mg/dL Total Bilirubin (0.2-1.0) mg/dL AST (15-37) U/L ALT (14-59) U/L Alkaline Phosphatase (46-116) U/L Troponin I (0.00-0.056) ng/mL C-Reactive Protein 0.4 (<1.0) mg/dL Total Protein (6.4-8.2) g/dl Albumin (3.4-5.0) g/dl Globulin gm/dL Albumin/Globulin Ratio (1-2) SARS-CoV-2 RNA (MELISSA) Negative (NEGATIVE) Meds: Medications Generic Name Dose Route Start Last Admin Trade Name Freq PRN Reason Stop Dose Admin Sodium Chloride 1,000 mls @ 150 mls/hr 05/02/21 19:30 05/02/21 20:55 Normal Saline IV 150 mls/hr ASDIRECTED JOELLEN Administration Sodium Chloride 100 mls @ 60 mls/hr 05/02/21 20:00 05/02/21 20:32 Normal Saline IV 60 mls/hr ASDIRECTED JOELLEN Administration Heparin Sodium/Dextrose 25,000 units in 500 mls @ 20 mls/hr 05/02/21 21:30 05/02/21 21:40 Heparin 25,000 Units In D5w 500 Ml IV 1,000 units/hr TITRATE JOELLEN 20 mls/hr Administration Protocol 1,000 UNITS/HR Sodium Chloride 10 ml 05/02/21 20:00 05/02/21 20:32 Sodium Chloride 0.9% 10 Ml Syringe FLUSH 10 ml ASDIRECTED JOELLEN Administration Discontinued Medications Generic Name Dose Route Start Last Admin Trade Name Sobeida PRN Reason Stop Dose Admin Heparin Sodium (Porcine) 4,000 units 05/02/21 21:25 05/02/21 21:37 Heparin Sodium 5,000 Units/Ml Vial IVPUSH 05/02/21 21:26 4,000 units .BOLUS STA Administration Iopamidol 100 ml 05/02/21 19:46 05/02/21 20:32 Iopamidol 755 Mg/Ml 100 Ml Bottle IVPUSH 05/02/21 19:47 100 ml ONETIME ONE Administration Nitroglycerin 0.4 mg 05/02/21 19:01 05/02/21 19:29 Nitroglycerin 0.4 Mg Tab.Sl SL 05/02/21 19:02 Not Given ONETIME ONE Ondansetron HCl 4 mg 05/02/21 19:01 05/02/21 19:29 Ondansetron 4 Mg/2 Ml Sdv IVPUSH 05/02/21 19:02 Not Given ONETIME ONE - Re-Assessments/Exams Free Text/Narrative Re-Assessment/Exam: 05/02/21 19:31 As above, the patient has been experiencing recurrent episodes of left upper chest pain that radiates up the left side of her neck to her left ear, and down her left upper extremity to her proximal forearm, usually associated with an intense throbbing sensation in her head, on a near weekly basis since 2011. She states that she has had prior evaluations of her head, but never of her chest. Today she developed relatively sudden-onset of left chest "hard, heavy" pain with a numbing and throbbing sensation going up the left side of her neck to her left ear and down her left upper extremity to her proximal forearm, the same as she usually gets, except more severe than usual, and this time not associated with a throbbing sensation in her head. She took an Aleve at home, then EMS gave her 4 baby aspirin en route. Her initial BP was elevated at 168/93, and an ECG obtained at triage is grossly normal, with no ischemic changes. When I evaluated her, she reported that her symptoms had not resolved, but they had a lready significantly improved. On examination, there are no cardiac murmurs, but I do hear a left-sided carotid bruit. None on the right. The remainder of her exam is unremarkable. A CBC, CMP, coags, troponin, portable chest x-ray, and CT of the head were ordered by Dr. Hoyos prior to my coming on shift. I have added a CRP and CT angiogram of the chest to evaluate for a PE and vascular anomalies. The patient declined an offer for both pain medication and antinausea medication. She will be given some IV fluid. CT of the head without contrast is read by [facility] as: 1. Negative head CT. 2. Chronic left cerebellar infarct. 3. [place] Stroke Program Early CT Score (ASPECTS) = 10. Portable chest radiograph reviewed. There is cardiomegaly, but no pulmonary vascular congestion to suggest decompensated CHF. No pleural effusions seen on this AP view. No focal infiltrate. No pneumothorax. There is evidence for a hiatal hernia. Sternotomy wires, cardiac clips, and a right Port-A-Cath noted. Formal read per the Radiologist pending. 05/02/21 20:18 The patient's CBC is remarkable for an H/H mildly depressed at 9.4/31.6, with the remainder of her CBC being unremarkable. Her CMP is remarkable for mild hyperglycemia of 137, with remainder of her CMP being unremarkable. Her troponin is significantly elevated at 0.661. Her coags are within normal limits. Her CRP and results of the CT angiogram of the chest are still pending. 05/02/21 20:42 Case discussed with Taryn at [facility] at 20:34. Case then discussed with Dr. White, Field Service Technician P[employer] at [facility], and Dr. Mora, Hospitalist at [facility], at 20:39. Dr. White recommended that I start the patient on a heparin drip, then transfer her, with anticipation of taking the patient to the Senior User Experience [facility] tomorrow. Dr. Mora accepted the patient. I will notify her if there are any significant findings on the CT angiogram of the chest. The patient will be transported by ground ambulance. 05/02/21 20:59 CT of the head without contrast, portable chest x-ray, and CT angiogram of the chest images pushed to [facility] at this time. The heparin drip orders will be entered as soon as I have the patient's weight. 05/02/21 21:03 The patient's CRP is within normal limits at 0.4. 05/02/21 21:21 CT angiogram of the chest is read by [facility] as: 1. No pulmonary embolism. 2. Mild interstitial pulmonary edema. 3. There is a moderate sized hiatal hernia. 05/02/21 21:28 The heparin bolus and drip orders have been entered. 05/02/21 22:12 The patient swab for the SARS-CoV-2 virus is negative. Departure - Departure Time of Disposition: 20:45 Condition: Good - Discharge Information *PRESCRIPTION DRUG MONITORING PROGRAM REVIEWED*: Not Applicable *COPY OF PRESCRIPTION DRUG MONITORING REPORT IN PATIENT JOHNNY: Not Applicable Sepsis Event Note (ED) - Focused Exam Vital Signs: Vital Signs Temp Pulse Resp BP Pulse Ox 05/02/21 18:49 36.9 C 93 20 168/93 H 96 - My Orders Last 24 Hours: My Active Orders 05/02/21 19:28 Ang Chest [CT] Stat 05/02/21 19:30 Sodium Chloride 0.9% [Normal Saline] 1,000 ml IV ASDIRECTED 05/02/21 20:00 Sodium Chloride 0.9% [Normal Saline] 100 ml IV ASDIRECTED Sodium Chloride 0.9% [Saline Flush] 10 ml FLUSH ASDIRECTED 05/02/21 21:30 Heparin Sodium/D5W [Heparin 25,000 Units in D5W 500 ML] 25,000 units in 500 ml IV TITRATE - Assessment/Plan Last 24 Hours: My Active Orders 05/02/21 19:28 Ang Chest [CT] Stat 05/02/21 19:30 Sodium Chloride 0.9% [Normal Saline] 1,000 ml IV ASDIRECTED 05/02/21 20:00 Sodium Chloride 0.9% [Normal Saline] 100 ml IV ASDIRECTED Sodium Chloride 0.9% [Saline Flush] 10 ml FLUSH ASDIRECTED 05/02/21 21:30 Heparin Sodium/D5W [Heparin 25,000 Units in D5W 500 ML] 25,000 units in 500 ml IV TITRATE
[2021-05-02] MEDS ORDERED: Nitroglycerin 0.4 MG Tab.SL SL ONE (19:01)
[2021-05-02] MEDS ORDERED: Ondansetron 4 MG/2 ML SDV IVPUSH ONE (19:01)
[2021-05-02] MEDS ORDERED: Sodium Chloride 0.9% 1,000 ML IV SCH (19:30)
[2021-05-02] MEDS ORDERED: Iopamidol 755 Mg/ML 100 ML Bottle IVPUSH ONE (19:46)
[2021-05-02] MEDS ORDERED: Sodium Chloride 0.9% 100 ML IV SCH (20:00)
[2021-05-02] MEDS ORDERED: Sodium Chloride 0.9% 10 ML Syringe FLUSH SCH (20:00)
[2021-05-02] MEDS ORDERED: Heparin Sodium 5,000 Units/ML Vial IVPUSH STA (21:25)
[2021-05-02] MEDS ORDERED: Heparin Sodium/D5W 25,000 UNITS/500 ML BAG IV SCH (21:30)
[2021-05-03 03:29] VITALS: BP 146/74; PULSE 83
--- NOTE | 2021-05-03 07:26 | CR ---
Chest: Frontal view of the chest was obtained. Comparison: Prior chest x-ray of 07/30/18. Heart is enlarged. Sternotomy is noted for CABG. Right-sided infusion catheter is seen. Lungs are clear with no acute parenchymal change. Hiatal hernia is noted. No acute osseous abnormality is appreciated. Impression: 1. Probable chronic findings as noted above. 2. Nothing acute is appreciated on frontal chest x-ray. Diagnostic code #2
--- NOTE | 2021-05-03 07:31 | CT ---
Head CT Technique: Multiple axial sections through the brain were obtained. Intravenous contrast was not utilized. Reconstructed coronal and sagittal images were obtained. Comparison: Previous MRI brain of 06/15/13. Findings: Ventricles along with basal cisterns and sulci over the convexities appear within normal limits for the patient's age. Old infarct is noted within the inferior left cerebellar hemisphere. No other abnormal parenchymal densities are seen. No evidence of intracranial hemorrhage is seen. No midline shift or mass-effect is seen. Atherosclerotic calcification is seen within the vertebral vessels and within the carotid siphon. Bone window settings were reviewed which show no acute calvarial abnormality. Visualized mastoid sinuses and paranasal sinuses show nothing acute. Impression: 1. Old infarct within the inferior left cerebellar hemisphere. 2. Atherosclerotic calcification within the vertebral vessels and carotid siphon. 3. Nothing acute is otherwise seen on noncontrast head CT exam. Diagnostic code #2 I agree with preliminary report from [facility], finalized on 05/02/21, 8:14 PM CDT, code 1
--- NOTE | 2021-05-03 07:49 | CT ---
CT chest Technique: Multiple axial sections were obtained from above the lung apices inferiorly through the lung bases. Intravenous contrast was utilized. Study has been performed as a pulmonary angiogram protocol. Comparison: Most recent chest x-ray is study performed earlier on the same day (6:56 PM). Findings: Pulmonary arteries are fairly well opacified. No evidence of filling defects to indicate pulmonary embolism is seen. Large hiatal hernia is noted. Other visualized upper abdominal structures show nothing acute. Heart is slightly enlarged. Mitral annulus calcification is noted. Sternotomy is noted. Thoracic aorta shows no aneurysm with atherosclerotic change. Mediastinum and hilar regions shows no discrete adenopathy. No axillary adenopathy is seen. No pleural effusions are seen. Lung window settings show mild bronchial wall thickening which is most likely chronic. No acute parenchymal process is seen within either lung.. Bone window settings were reviewed. Diffuse scattered disc space narrowing and endplate spurring is noted within the spine. No acute osseous abnormality is appreciated. Impression: 1. No findings of pulmonary embolism. 2. Mild bronchial wall thickening most likely chronic. 3. Hiatal hernia with other chronic appearing findings as noted above. Diagnostic code #2 I agree with preliminary report from [facility], finalized on 05/02/21, 10:11 PM CDT, code 1
== END 2021-05-02 22:35 ==
LOC: JD.ED 18:42
DX: R07.89 Other chest pain (principal); R79.89 Other specified abnormal findings of blood chemistry; I25.10 Atherosclerotic heart disease of native coronary artery without angina pectoris; I10 Essential (primary) hypertension; Z20.822 Contact with and (suspected) exposure to COVID-19; Z95.5 Presence of coronary angioplasty implant and graft; Z86.73 Personal history of transient ischemic attack (TIA), and cerebral infarction without residual deficits; Z91.048 Other nonmedicinal substance allergy status; Z88.8 Allergy status to other drugs, medicaments and biological substances; Z91.09 Other allergy status, other than to drugs and biological substances; R20.8 Other disturbances of skin sensation
CPT/HCPCS: 36415; 70450; 71045; 71275; 80053; 84484; 85025; 85610; 85730; 86140; 93005; 96365; 99285; J1644; J7030; Q9967; U0002; 93010; 99284; A9270-GY

== ENCOUNTER 2022-03-10 19:43 | Emergency (ER) | payer MEDICARE, BC ==
[2022-03-10 19:58] VITALS: BP 163/113; PULSE 113
[2022-03-10 21:47] LABS: ESTIMATED GFR > 60 mL/min (>60)
== END 2022-03-10 23:09 ==
LOC: JD.ED 19:43
DX: I63.9 Cerebral infarction, unspecified (principal); G45.9 Transient cerebral ischemic attack, unspecified; I48.91 Unspecified atrial fibrillation; E03.9 Hypothyroidism, unspecified; I25.10 Atherosclerotic heart disease of native coronary artery without angina pectoris; E78.00 Pure hypercholesterolemia, unspecified; I10 Essential (primary) hypertension; Z79.899 Other long term (current) drug therapy; Z88.8 Allergy status to other drugs, medicaments and biological substances; Z91.041 Radiographic dye allergy status; Z95.1 Presence of aortocoronary bypass graft
CPT/HCPCS: 36415; 70450; 70450-26; 70496; 70496-26; 70498; 70498-26; 71045; 71045-26; 80053; 84484; 85025; 85610; 85730; 93005; 99285; 99285-25

== ENCOUNTER 2022-11-24 13:35 | Emergency (ER) | payer MEDICARE, BC ==
[2022-11-24] MEDS ORDERED: HYDROmorphone 0.5 MG/0.5 ML Syringe IVPUSH ONE (14:17)
[2022-11-24] MEDS ORDERED: diphenhydrAMINE 50 MG/ML SDV IVPUSH ONE (14:18)
[2022-11-24] MEDS ORDERED: Metoclopramide 10 MG/2 ML SDV IVPUSH ONE (14:18)
[2022-11-24] MEDS ORDERED: Dextrose 5%-0.9% NaCl 1,000 ML IV SCH (15:00)
[2022-11-24 15:26] LABS: ESTIMATED GFR 66 mL/min (>60)
[2022-11-24] MEDS ORDERED: Iopamidol 612 MG/ML 100 ML Bottle IVPUSH ONE (16:48)
[2022-11-24] MEDS ORDERED: Sodium Chloride 0.9% 10 ML Syringe FLUSH ONE (17:00)
[2022-11-24 19:55] VITALS: BP 152/76; PULSE 91
== END 2022-11-24 19:54 | disposition home or self-care (01) ==
LOC: JD.ED 13:35
DX: R51.9 Headache, unspecified (principal); I48.91 Unspecified atrial fibrillation; I25.810 Atherosclerosis of coronary artery bypass graft(s) without angina pectoris; E78.00 Pure hypercholesterolemia, unspecified; I10 Essential (primary) hypertension; K21.9 Gastro-esophageal reflux disease without esophagitis; E03.9 Hypothyroidism, unspecified; E66.9 Obesity, unspecified; Z88.8 Allergy status to other drugs, medicaments and biological substances; Z91.041 Radiographic dye allergy status; Z79.899 Other long term (current) drug therapy; Z79.01 Long term (current) use of anticoagulants; Z86.73 Personal history of transient ischemic attack (TIA), and cerebral infarction without residual deficits
CPT/HCPCS: 36415; 70450; 70496; 70498; 71045; 80053; 82947; 83605; 83735; 83880; 84484; 85025; 85610; 85730; 86140; 93005; 96361; 96374; 96375; 99284; J1170; J1200; J1642; J2765; J3490; J7042; Q9967; 93010

== ENCOUNTER 2023-04-19 10:13 | Emergency (ER) | payer MEDICARE, BC ==
[2023-04-19] MEDS ORDERED: LORazepam 2 MG/ML SDV IVPUSH ONE (10:35)
[2023-04-19] MEDS ORDERED: LORazepam 2 MG/ML SDV ONE (10:37)
[2023-04-19 10:49] LABS: BASOPHILS ABSOLUTE AUTO 0.01 K/mm3 (0.01-0.08); BASOPHILS PERCENT AUTO 0.1 % (0.1-1.2); EOSINOPHILS ABSOLUTE AUTO 0.09 K/mm3 (0.04-0.36); EOSINOPHILS PERCENT AUTO 1.1 (0.7-5.8); HEMATOCRIT 40.3 % (34.1-44.9); HEMOGLOBIN 13.4 gm/dl (11.2-15.7); IMMATURE GRAN ABSOLUTE AUTO 0.03 K/mm3 (0.00-0.10); IMMATURE GRAN PERCENT AUTO 0.4 % (<=1.0); LYMPHOCYTES ABSOLUTE AUTO 1.31 K/mm3 (1.18-3.74); LYMPHOCYTES PERCENT AUTO 16.7 % (19.3-51.7); MEAN CORPUSCULAR HEMOGLOBIN 29.3 pg (25.6-32.2); MEAN CORPUSCULAR HGB CONC 33.3 g/dl (32.2-35.5); MEAN CORPUSCULAR VOLUME 88.2 fl (79.4-94.8); MEAN PLATELET VOLUME 11.6 fl (9.4-12.3); MONOCYTES ABSOLUTE AUTO 0.51 K/mm3 (0.24-0.36); MONOCYTES PERCENT AUTO 6.5 % (4.7-12.5); NEUTROPHILS ABSOLUTE AUTO 5.91 K/mm3 (1.56-6.13); NEUTROPHILS PERCENT AUTO 75.2 % (34.0-71.1); PLATELET COUNT,PLT 245 K/mm3 (182-369); RED BLOOD CELL COUNT 4.57 M/mm3 (3.98-5.22); WHITE BLOOD CELL COUNT,WBC 7.86 K/mm3 (3.98-10.04)
[2023-04-19 11:03] LABS: A/G RATIO 0.9 (1-2); ALBUMIN 3.3 g/dl (3.4-5.0); ANION GAP 15.7 (5-15); BILIRUBIN TOTAL 0.6 mg/dL (0.2-1.0); BUN/CREATININE RATIO 23.6 (14-18); CALCIUM 9.1 mg/dL (8.5-10.1); CREATININE 1.1 mg/dL (0.55-1.02); EST CRCL DRUG DOSING (CG) 35.43 mL/min; POTASSIUM,K 3.7 mEq/L (3.5-5.1); PROTEIN TOTAL,TP 7.2 g/dl (6.4-8.2)
[2023-04-19 17:59] VITALS: BP 154/85; PULSE 89
== END 2023-04-19 13:51 | disposition home or self-care (01) ==
LOC: JD.ED 10:13
DX: F41.0 Panic disorder [episodic paroxysmal anxiety] (principal); I48.91 Unspecified atrial fibrillation; I25.810 Atherosclerosis of coronary artery bypass graft(s) without angina pectoris; E78.00 Pure hypercholesterolemia, unspecified; I10 Essential (primary) hypertension; K21.9 Gastro-esophageal reflux disease without esophagitis; E03.9 Hypothyroidism, unspecified; E66.9 Obesity, unspecified; Z68.35 Body mass index [BMI] 35.0-35.9, adult; Z88.8 Allergy status to other drugs, medicaments and biological substances; Z91.041 Radiographic dye allergy status; Z91.048 Other nonmedicinal substance allergy status; Z79.899 Other long term (current) drug therapy; Z79.01 Long term (current) use of anticoagulants
CPT/HCPCS: 36415; 71045; 80053; 84484; 85025; 85379; 93005; 96374; 99285; J2060; 93010; 99284

== ENCOUNTER 2023-05-01 22:21 | Emergency (ER) | payer MEDICARE, BC ==
[2023-05-02 00:37] VITALS: BP 114/59; PULSE 87
== END 2023-05-02 00:30 | disposition home or self-care (01) ==
LOC: JD.ED 22:21
DX: S09.90XA Unspecified injury of head, initial encounter (principal); S40.012A Contusion of left shoulder, initial encounter; E78.00 Pure hypercholesterolemia, unspecified; K21.9 Gastro-esophageal reflux disease without esophagitis; I48.91 Unspecified atrial fibrillation; I25.10 Atherosclerotic heart disease of native coronary artery without angina pectoris; E03.9 Hypothyroidism, unspecified; I10 Essential (primary) hypertension; E66.9 Obesity, unspecified; Z68.37 Body mass index [BMI] 37.0-37.9, adult; Z88.8 Allergy status to other drugs, medicaments and biological substances; Z79.899 Other long term (current) drug therapy; Z88.6 Allergy status to analgesic agent; Z95.1 Presence of aortocoronary bypass graft; Z91.041 Radiographic dye allergy status; Z91.048 Other nonmedicinal substance allergy status; W01.0XXA Fall on same level from slipping, tripping and stumbling without subsequent striking against object, initial encounter
CPT/HCPCS: 70450; 70450-26; 71045; 71045-26; 72125; 72125-26; 73030-26-LT; 73030-LT; 93005; 93010; 99283; 99284

== ENCOUNTER → 2024-01-09 | Day surgery (SDC) | payer MEDICARE, BC ==
[~2024-01-09] MED LIST changes: +EPINEPHrine 1 MG/ML SDV ONE; -Lactated Ringers 1,000 ML IV SCH; +Lidocaine 1% 2 ML ONE; -Lidocaine 1%/Sod Bicarbonate in NS 8.4% 1 ML Syringe IDERM PRN; +Midazolam 1 MG/ML 2 ML SDV ONE; +Ondansetron 4 MG/2 ML SDV IVPUSH PRN; +Propofol 200 MG/20 ML SDV ONE; +Sodium Chloride 0.9% 10 ML Syringe FLUSH SCH; +ceFAZolin 2 GM Vial ONE; +fentaNYL 100 MCG/2 ML SDV IVPUSH PRN; +fentaNYL 100 MCG/2 ML SDV ONE
[2024-01-09] MEDS: Lactated Ringers 1,000 ML IV SCH (10:15)
[2024-01-09] MEDS: Lidocaine 1% 30 ML SDV ONE (11:35)
[2024-01-09] MEDS: Bupivacaine 0.5% 30 ML SDV ONE (11:35)
[2024-01-09 13:27] VITALS: BP 149/78; PULSE 86
== END | disposition home or self-care (01) ==
LOC: JD.SDS 10:16
PROVIDERS: ATTEND Student in an Organized Health Care Education/Training Program
DX: Z45.2 Encounter for adjustment and management of vascular access device (principal); I48.91 Unspecified atrial fibrillation; E78.00 Pure hypercholesterolemia, unspecified; I10 Essential (primary) hypertension; E03.9 Hypothyroidism, unspecified; F32.A Depression, unspecified; E11.42 Type 2 diabetes mellitus with diabetic polyneuropathy; F17.200 Nicotine dependence, unspecified, uncomplicated; Z79.01 Long term (current) use of anticoagulants; Z98.890 Other specified postprocedural states; Z79.890 Hormone replacement therapy; Z79.899 Other long term (current) drug therapy; Z91.041 Radiographic dye allergy status; Z88.8 Allergy status to other drugs, medicaments and biological substances
CPT/HCPCS: 36590; J0171; J0665; J0690; J2250; J2704; J3010; J7120; J3490

== ENCOUNTER 2024-01-18 14:40 | Emergency (ER) | payer MEDICARE, BC ==
[2024-01-18 15:50] LABS: A/G RATIO 0.9 (1-2); ALBUMIN 2.8 g/dl (3.4-5.0); ANION GAP 17.7 (5-15); BILIRUBIN TOTAL 0.2 mg/dL (0.2-1.0); BUN/CREATININE RATIO 22.9 (14-18); C-REACTIVE PROTEIN 0.2 mg/dL (<0.30); CALCIUM 8.8 mg/dL (8.5-10.1); CREATININE 1.4 mg/dL (0.55-1.02); EST CRCL DRUG DOSING (CG) 29.06 mL/min; MAGNESIUM 1.7 mg/dL (1.8-2.4); POTASSIUM,K 2.7 mEq/L (3.5-5.1); PROTEIN TOTAL,TP 6.1 g/dl (6.4-8.2)
[2024-01-18 15:51] LABS: BASOPHILS PERCENT AUTO 0.1 % (0.0-1.0); EOSINOPHILS ABSOLUTE AUTO 0.1 K/mm3 (0.0-0.4); EOSINOPHILS PERCENT AUTO 0.7 % (0.0-6.0); HEMATOCRIT 22.4 % (37.0-47.0); IMMATURE GRAN ABSOLUTE AUTO 0.09 K/mm3 (0.00-0.05); IMMATURE GRAN PERCENT AUTO 0.9 % (0.0-0.4); LYMPHOCYTES PERCENT AUTO 10.4 % (24.0-44.0); MEAN CORPUSCULAR HEMOGLOBIN 25.5 pg (28.0-32.0); MEAN CORPUSCULAR HGB CONC 31.3 g/dl (32.0-36.0); MEAN CORPUSCULAR VOLUME 81.5 fl (83.0-99.0); MEAN PLATELET VOLUME 10.8 fl (9.4-12.3); MONOCYTES ABSOLUTE AUTO 0.7 K/mm3 (0.0-0.8); MONOCYTES PERCENT AUTO 6.8 % (0.0-8.0); NEUTROPHILS ABSOLUTE AUTO 7.7 K/mm3 (1.8-7.7); NEUTROPHILS PERCENT AUTO 81.1 % (41.0-71.0); PLATELET COUNT,PLT 383 K/mm3 (150-400); RED BLOOD CELL COUNT 2.75 M/mm3 (4.10-5.30); WHITE BLOOD CELL COUNT,WBC 9.54 K/mm3 (3.9-11.3)
[2024-01-18 15:59] LABS: LACTIC ACID 3.6 mmol/L (0.4-2.0)
[2024-01-18 16:00] LABS: INR 1.07; PROTHROMBIN TIME 11.4 SECONDS (9.7-12.0)
[2024-01-18] MEDS: Sodium Chloride 0.9% 1,000 ML IV SCH ×2 (16:17→20:31)
[2024-01-18] MEDS: Sodium Chloride 0.9% 10 ML Syringe FLUSH PRN ×2 (16:18→19:20)
[2024-01-18] MEDS: Magnesium Sulfate/Water 4 GM in Premix Bag 1 BAG IV ONE (16:45)
[2024-01-18] MEDS: Potassium Chloride 10 MEQ in Premix Bag 1 BAG IV SCH (16:45)
[2024-01-18 17:32] LABS: CORONAVIRUS COVID-19 NAA NEGATIVE (NEGATIVE); INFLUENZA A NAA NEGATIVE (NEGATIVE)
[2024-01-18 18:04] LABS: APPEARANCE,URINE CLEAR (Clear); BILIRUBIN,URINE NEGATIVE (Negative); COLOR,URINE YELLOW (Yellow); GLUCOSE,URINE NEGATIVE (Negative); KETONES,URINE NEGATIVE (Negative); LEUKOCYTE ESTERASE,URINE NEGATIVE (Negative); NITRITE,URINE NEGATIVE (Negative); OCCULT BLOOD,URINE NEGATIVE (Negative); PROTEIN,URINE NEGATIVE (Negative); UROBILINOGEN,URINE 0.2 (0.2-1.0)
[2024-01-18] MEDS: Iopamidol 755 Mg/ML 100 ML Bottle IVPUSH ONE (19:18)
[2024-01-18] MEDS ORDERED: Sodium Chloride 0.9% 100 ML IV SCH (19:30)
[2024-01-18 23:07] VITALS: BP 112/85; PULSE 100
== END 2024-01-18 21:19 ==
LOC: JD.ED 14:40
DX: K92.2 Gastrointestinal hemorrhage, unspecified (principal); I10 Essential (primary) hypertension; I25.10 Atherosclerotic heart disease of native coronary artery without angina pectoris; I48.91 Unspecified atrial fibrillation; K21.9 Gastro-esophageal reflux disease without esophagitis; E03.9 Hypothyroidism, unspecified; E66.9 Obesity, unspecified; Z86.73 Personal history of transient ischemic attack (TIA), and cerebral infarction without residual deficits; Z90.710 Acquired absence of both cervix and uterus; Z95.1 Presence of aortocoronary bypass graft; Z95.5 Presence of coronary angioplasty implant and graft; Z79.899 Other long term (current) drug therapy; Z79.01 Long term (current) use of anticoagulants; Z91.048 Other nonmedicinal substance allergy status; Z88.8 Allergy status to other drugs, medicaments and biological substances; Z91.018 Allergy to other foods
CPT/HCPCS: 0240U; 36415; 36430; 74175; 80053; 81003; 82272; 83605; 83735; 85018; 85025; 85610; 86140; 86850; 86900; 86901; 86922; 87040; 93005; 96365; 96366; 96368; 99285; J3475; J3480; J3490; J7030; P9016; Q9967; 93010; 99284

== ENCOUNTER 2024-01-23 10:30 | Emergency (ER) | payer MEDICARE, BC ==
[2024-01-23] MEDS ORDERED: Sodium Chloride 0.9% 10 ML Syringe FLUSH PRN (12:40)
[2024-01-23] MEDS: Sodium Chloride 0.9% 10 ML Syringe FLUSH PRN (12:41)
[2024-01-23] MEDS: Iopamidol 755 Mg/ML 100 ML Bottle IVPUSH ONE (12:41)
[2024-01-23] MEDS: Sodium Chloride 0.9% 45 ML IV SCH (12:41)
[2024-01-23 13:27] LABS: BASOPHILS PERCENT AUTO 0.1 % (0.0-1.0); EOSINOPHILS PERCENT AUTO 0.1 % (0.0-6.0); IMMATURE GRAN ABSOLUTE AUTO 0.19 K/mm3 (0.00-0.05); IMMATURE GRAN PERCENT AUTO 1.2 % (0.0-0.4); LYMPHOCYTES ABSOLUTE AUTO 0.7 K/mm3 (1.0-4.8); LYMPHOCYTES PERCENT AUTO 4.1 % (24.0-44.0); MEAN CORPUSCULAR HEMOGLOBIN 25.4 pg (28.0-32.0); MEAN CORPUSCULAR HGB CONC 30.8 g/dl (32.0-36.0); MEAN CORPUSCULAR VOLUME 82.5 fl (83.0-99.0); MEAN PLATELET VOLUME 9.9 fl (9.4-12.3); MONOCYTES ABSOLUTE AUTO 0.9 K/mm3 (0.0-0.8); MONOCYTES PERCENT AUTO 5.6 % (0.0-8.0); NEUTROPHILS ABSOLUTE AUTO 14.1 K/mm3 (1.8-7.7); NEUTROPHILS PERCENT AUTO 88.9 % (41.0-71.0); PLATELET COUNT,PLT 305 K/mm3 (150-400); RED BLOOD CELL COUNT 3.15 M/mm3 (4.10-5.30); WHITE BLOOD CELL COUNT,WBC 15.88 K/mm3 (3.9-11.3)
[2024-01-23 13:42] LABS: INR 1.05; PROTHROMBIN TIME 11.2 SECONDS (9.7-12.0)
[2024-01-23 13:43] LABS: A/G RATIO 0.8 (1-2); ALBUMIN 2.5 g/dl (3.4-5.0); ANION GAP 13.3 (5-15); BILIRUBIN TOTAL 0.3 mg/dL (0.2-1.0); CALCIUM 8.5 mg/dL (8.5-10.1); CREATININE 0.7 mg/dL (0.55-1.02); EST CRCL DRUG DOSING (CG) 72.78 mL/min; MAGNESIUM 1.4 mg/dL (1.8-2.4); POTASSIUM,K 3.3 mEq/L (3.5-5.1); PROTEIN TOTAL,TP 5.6 g/dl (6.4-8.2); PTT,PARTIAL THROMBOPLSTIN TIME 24.5 SECONDS (21.7-31.4)
[2024-01-23] MEDS: Sodium Chloride 0.9% 1,000 ML IV ONE (14:25)
[2024-01-23 14:35] VITALS: BP 118/86; PULSE 90
== END 2024-01-23 14:06 ==
LOC: JD.ED 10:30
DX: I63.12 Cerebral infarction due to embolism of basilar artery (principal); K92.2 Gastrointestinal hemorrhage, unspecified; I10 Essential (primary) hypertension; E78.00 Pure hypercholesterolemia, unspecified; I25.10 Atherosclerotic heart disease of native coronary artery without angina pectoris; I48.91 Unspecified atrial fibrillation; K21.9 Gastro-esophageal reflux disease without esophagitis; E03.9 Hypothyroidism, unspecified; E66.9 Obesity, unspecified; Z79.01 Long term (current) use of anticoagulants; Z91.048 Other nonmedicinal substance allergy status; Z88.8 Allergy status to other drugs, medicaments and biological substances; Z91.041 Radiographic dye allergy status; Z86.73 Personal history of transient ischemic attack (TIA), and cerebral infarction without residual deficits; Z79.899 Other long term (current) drug therapy; Z90.710 Acquired absence of both cervix and uterus; Z68.30 Body mass index [BMI] 30.0-30.9, adult; Z95.5 Presence of coronary angioplasty implant and graft; Z95.1 Presence of aortocoronary bypass graft
CPT/HCPCS: 36415; 70496; 70498; 80053; 83735; 85025; 85610; 85730; 93005; 99285; J3490; Q9967; 93010

== ENCOUNTER 2024-02-25 17:10 | Inpatient (IN) | payer MEDICARE, BC ==
[2024-02-25 18:38] LABS: BASOPHILS PERCENT AUTO 0.2 % (0.0-1.0); EOSINOPHILS ABSOLUTE AUTO 0.1 K/mm3 (0.0-0.4); EOSINOPHILS PERCENT AUTO 1.9 % (0.0-6.0); HEMOGLOBIN 11.4 gm/dl (12.0-16.0); IMMATURE GRAN ABSOLUTE AUTO 0.01 K/mm3 (0.00-0.05); IMMATURE GRAN PERCENT AUTO 0.2 % (0.0-0.4); LYMPHOCYTES ABSOLUTE AUTO 0.9 K/mm3 (1.0-4.8); LYMPHOCYTES PERCENT AUTO 19.9 % (24.0-44.0); MEAN CORPUSCULAR HEMOGLOBIN 23.8 pg (28.0-32.0); MEAN CORPUSCULAR HGB CONC 30.8 g/dl (32.0-36.0); MEAN CORPUSCULAR VOLUME 77.2 fl (83.0-99.0); MEAN PLATELET VOLUME 10.7 fl (9.4-12.3); MONOCYTES ABSOLUTE AUTO 0.4 K/mm3 (0.0-0.8); MONOCYTES PERCENT AUTO 8.9 % (0.0-8.0); NEUTROPHILS ABSOLUTE AUTO 3.2 K/mm3 (1.8-7.7); NEUTROPHILS PERCENT AUTO 68.9 % (41.0-71.0); PLATELET COUNT,PLT 181 K/mm3 (150-400); RED BLOOD CELL COUNT 4.79 M/mm3 (4.10-5.30); WHITE BLOOD CELL COUNT,WBC 4.63 K/mm3 (3.9-11.3)
[2024-02-25 18:58] LABS: INR 1.85; PROTHROMBIN TIME 18.9 SECONDS (9.7-12.0)
[2024-02-25 18:58] LABS: BASE EXCESS ARTERIAL 2.6 (-2-2.0); BICARBONATE,ARTERIAL 26.7 meq/L (22.0-26.0); O2 SATURATION ARTERIAL 90.7 % (96.0-97.0); PCO2 ARTERIAL 41.4 mmHg (35.0-45.0)
[2024-02-25] MEDS: Albuterol/Ipratropium 3.0-0.5 MG/3 ML Neb Soln NEB ONE (19:00)
[2024-02-25 19:06] LABS: D-DIMER QUANTITATIVE 0.8 mg/L (0.19-0.50)
[2024-02-25 19:11] LABS: A/G RATIO 0.8 (1-2); ALBUMIN 2.9 g/dl (3.4-5.0); ANION GAP 13.9 (5-15); BILIRUBIN TOTAL 0.3 mg/dL (0.2-1.0); CALCIUM 8.7 mg/dL (8.5-10.1); CREATININE 0.8 mg/dL (0.55-1.02); EST CRCL DRUG DOSING (CG) 50.85 mL/min; POTASSIUM,K 2.9 mEq/L (3.5-5.1); PROTEIN TOTAL,TP 6.7 g/dl (6.4-8.2)
[2024-02-25 19:12] LABS: MAGNESIUM 1.3 mg/dL (1.8-2.4); PHOSPHORUS 3.6 mg/dL (2.6-4.7)
[2024-02-25] MEDS ORDERED: Sodium Chloride 0.9% 100 ML IV SCH (20:00)
[2024-02-25] MEDS: Iopamidol 755 Mg/ML 100 ML Bottle IVPUSH ONE (20:40)
[2024-02-25] MEDS: methylPREDNISolone Sodium Succinate 125 MG/2 ML SDV IVPUSH ONE (20:43)
[2024-02-25] MEDS: cefTRIAXone 1 GM in Sodium Chloride 0.9% 100 ML IV ONE (20:46)
[2024-02-25] MEDS: Potassium Chloride 10 MEQ in Premix Bag 1 BAG IV ONE (23:16)
[2024-02-25] MEDS: Sodium Chloride 0.9% 1,000 ML ONE (23:16)
[2024-02-25] MEDS: predniSONE 20 MG Tab PO ONE (23:16)
[2024-02-25] MEDS: Doxycycline Monohydrate 100 MG Cap PO SCH (23:20)
[2024-02-26] MEDS ORDERED: Acetaminophen 325 MG Tab PO PRN (06:21)
[2024-02-26] MEDS ORDERED: Ondansetron 4 MG/2 ML SDV IV PRN (06:21)
[2024-02-26] MEDS ORDERED: Polyethylene Glycol 3350 Powder 17 GM Packet PO PRN (06:22)
[2024-02-26] MEDS: predniSONE 20 MG Tab PO SCH (06:52)
[2024-02-26 07:27] LABS: CORONAVIRUS COVID-19 NAA NEGATIVE (NEGATIVE); INFLUENZA A NAA NEGATIVE (NEGATIVE); RESPIRATORY SYNCYTIAL VIR NAA NEGATIVE (NEGATIVE)
[2024-02-26] MEDS: Pantoprazole 40 MG Tab.CR PO SCH (08:27)
[2024-02-26] MEDS: ARIPiprazole 5 MG Tab PO SCH (08:27)
[2024-02-26] MEDS: Furosemide 40 MG Tab PO SCH (08:27)
[2024-02-26] MEDS: Ferrous Sulfate 324 MG Tab.EC PO SCH (08:27)
[2024-02-26] MEDS: Albuterol/Ipratropium 3.0-0.5 MG/3 ML Neb Soln NEB SCH (08:29)
[2024-02-26] MEDS: atorvaSTATin 40 MG Tab PO SCH (17:27)
[2024-02-26] MEDS: Warfarin 2.5 MG Tab PO SCH (17:28)
[2024-02-26] MEDS: Sertraline 50 MG Tab PO SCH (20:59)
[2024-02-27 05:36] LABS: INR 1.31; PROTHROMBIN TIME 13.7 SECONDS (9.7-12.0)
[2024-02-27 05:56] LABS: A/G RATIO 0.8 (1-2); ALBUMIN 2.6 g/dl (3.4-5.0); ANION GAP 11.7 (5-15); BILIRUBIN TOTAL 0.3 mg/dL (0.2-1.0); BUN/CREATININE RATIO 24.3 (14-18); CALCIUM 8.5 mg/dL (8.5-10.1); CREATININE 0.7 mg/dL (0.55-1.02); EST CRCL DRUG DOSING (CG) 58.12 mL/min; POTASSIUM,K 2.7 mEq/L (3.5-5.1); PROTEIN TOTAL,TP 5.9 g/dl (6.4-8.2)
[2024-02-27 06:04] LABS: HEMATOCRIT 31.4 % (37.0-47.0); HEMOGLOBIN 9.7 gm/dl (12.0-16.0); MEAN CORPUSCULAR HEMOGLOBIN 23.6 pg (28.0-32.0); MEAN CORPUSCULAR HGB CONC 30.9 g/dl (32.0-36.0); MEAN CORPUSCULAR VOLUME 76.4 fl (83.0-99.0); PLATELET COUNT,PLT 185 K/mm3 (150-400); RED BLOOD CELL COUNT 4.11 M/mm3 (4.10-5.30)
[2024-02-27] MEDS: Levothyroxine 50 MCG Tab PO SCH (06:35)
[2024-02-27] MEDS: Potassium Chloride 20 MEQ Tab.ER PO SCH (08:16)
[2024-02-27] MEDS: Sodium Chloride 0.9% 500 ML IV SCH (08:30)
[2024-02-27] MEDS: Potassium Chloride 10 MEQ in Premix Bag 1 BAG IV SCH ×2 (08:30→12:10)
[2024-02-27] MEDS: Potassium Chloride 20 MEQ Tab.ER PO ONE (12:10)
[2024-02-27 12:18] VITALS: BP 103/61; PULSE 106
[2024-02-27] MEDS ORDERED: Warfarin 2.5 MG Tab PO SCH (18:00)
== END 2024-02-27 13:31 | DRG 189 ==
LOC: JD.ED 17:10 → JD.MS 22:10
PROVIDERS: ADMIT Internal Medicine; ATTEND Internal Medicine
PROC: 4A033R1 Measurement of Arterial Saturation, Peripheral, Percutaneous Approach (ICD-10-PCS; principal; 2024-02-25)
DX: J96.01 Acute respiratory failure with hypoxia (principal); R09.02 Hypoxemia; J21.9 Acute bronchiolitis, unspecified; I48.0 Paroxysmal atrial fibrillation; I48.91 Unspecified atrial fibrillation; I10 Essential (primary) hypertension; E78.00 Pure hypercholesterolemia, unspecified; K21.9 Gastro-esophageal reflux disease without esophagitis; F41.9 Anxiety disorder, unspecified; F32.A Depression, unspecified; E87.6 Hypokalemia; Z79.01 Long term (current) use of anticoagulants; Z79.899 Other long term (current) drug therapy; E03.9 Hypothyroidism, unspecified; E11.9 Type 2 diabetes mellitus without complications; Z91.048 Other nonmedicinal substance allergy status; E66.9 Obesity, unspecified; D50.9 Iron deficiency anemia, unspecified; E83.42 Hypomagnesemia; I25.10 Atherosclerotic heart disease of native coronary artery without angina pectoris; Z95.1 Presence of aortocoronary bypass graft; Z88.6 Allergy status to analgesic agent; Z88.8 Allergy status to other drugs, medicaments and biological substances; Z95.5 Presence of coronary angioplasty implant and graft; Z68.32 Body mass index [BMI] 32.0-32.9, adult; Z98.49 Cataract extraction status, unspecified eye; Z86.73 Personal history of transient ischemic attack (TIA), and cerebral infarction without residual deficits; Z98.51 Tubal ligation status; Z91.041 Radiographic dye allergy status; Z90.710 Acquired absence of both cervix and uterus; Z79.890 Hormone replacement therapy; Z96.659 Presence of unspecified artificial knee joint; Z86.16 Personal history of COVID-19
CPT/HCPCS: 0241U; 36415; 36600; 71275; 80053; 82803; 82947; 83735; 83880; 84100; 84484; 85025; 85027; 85379; 85610; 87641; 93005; 93307; 93971; 94640; 94667; 94668; 94761; 96365; 96375; 99285; 93010; A9270-GY; J0696; J2930; J3475; J3480; J3490; J7030; J7512; J7620-GY; Q9967